=== PATIENT | male | born 1955 | race Caucasian/White ===

== ENCOUNTER 2018-05-07 09:31 | Emergency (ER) | payer OTHER ==
--- NOTE | 2018-05-07 09:57 | ER Document Report ---
ED Medical Screen (RME) - General Chief Complaint: Abdominal Pain Stated Complaint: ABDOMINAL PAIN Time Seen by Provider: 05/07/18 09:47 Mode of Arrival: Ambulatory Information source: Patient Notes: 63-year-old male presents with left lower quadrant abdominal pain that started 1 day prior to arrival with worsening of pain today. Patient denies any associated fever chills, nausea vomiting, diarrhea. I have greeted and performed a rapid initial assessment of this patient. A comprehensive ED assessment and evaluation of the patient, analysis of test results and completion of medical decision making process we will be contacted by additional ED providers. PHYSICAL EXAMINATION: Vital signs reviewed GENERAL: Well-appearing, well-nourished and in no acute distress. LUNGS: No respiratory distress Musculoskeletal: Normal range of motion NEUROLOGICAL: Normal speech, normal gait. PSYCH: Normal mood, normal affect. SKIN: Warm, Dry, normal turgor, no rashes or lesions noted. TRAVEL OUTSIDE OF THE [place] IN LAST 30 DAYS: No - HPI Onset: Yesterday Onset/Duration: Gradual, Persistent, Worse Quality of pain: Stabbing Severity: Mild Associated Symptoms: denies: Diarrhea, Nausea, Vomiting Exacerbated by: Deep breathing Relieved by: Denies Similar symptoms previously: Yes Recently seen / treated by doctor: No - Related Data Smoking: Non-smoker Frequency of alcohol use: None Drug Abuse: None Allergies/Adverse Reactions: No Known Allergies Allergy (Unverified 05/07/18 09:33) Physical Exam - Vital signs Vitals: Temp Pulse Resp BP Pulse Ox 97.4 F 88 16 128/77 H 96 05/07/18 09:37 05/07/18 09:37 05/07/18 09:37 05/07/18 09:37 05/07/18 09:37 Course - Vital Signs Vital signs: Temp Pulse Resp BP Pulse Ox 97.4 F 88 16 128/77 H 96 05/07/18 09:37 05/07/18 09:37 05/07/18 09:37 05/07/18 09:37 05/07/18 09:37
[2018-05-07 10:30] LABS: ABSOLUTE EOSINOPHILS # (AUTO) 0.2 10^3/uL (0.0-0.6); ABSOLUTE LYMPHOCYTES (AUTO) 1.8 10^3/uL (0.5-4.7); ABSOLUTE MONOCYTES (AUTO) 1.2 10^3/uL (0.1-1.4); ABSOLUTE NEUT (AUTO) 6.3 10^3/uL (1.7-8.2); BASOPHILS % (AUTO) 0.4 % (0-2); EOSINOPHILS % (AUTO) 1.7 % (0-6); HEMATOCRIT 40.3 % (37.9-51.0); LYMPHOCYTES % (AUTO) 19.1 % (13-45); MEAN CORPUSCULAR HEMOGLOBIN 31.5 pg (27.0-33.4); MEAN CORPUSCULAR HGB CONC 34.6 g/dL (32.0-36.0); MEAN CORPUSCULAR VOLUME 91 fl (80-97); MONOCYTES % (AUTO) 12.6 % (3-13); PLATELET COUNT 197 10^3/uL (150-450); RED BLOOD COUNT 4.43 10^6/uL (4.35-5.55); RED CELL DISTRIBUTION WIDTH 14.2 % (11.5-14.0); SEGMENTED NEUTROPHILS % (AUTO) 66.2 % (42-78); TOTAL CELLS COUNTED % (AUTO) 100 %; WHITE BLOOD COUNT 9.5 10^3/uL (4.0-10.5)
--- NOTE | 2018-05-07 10:44 | ER Document Report ---
ED General - General Chief Complaint: Abdominal Pain Stated Complaint: ABDOMINAL PAIN Time Seen by Provider: 05/07/18 09:47 Mode of Arrival: Ambulatory Information source: Patient Notes: This is a 64-year-old man with a history of peripheral neuropathy, COPD, GERD, dyslipidemia. The patient presents to the emergency room with lower abdominal pain for the past 24 hours. He was evaluated at urgent care yesterday and they recommended he come to the ER for evaluation. Patient denies any nausea, vomiting, blood in the stool. He has no family history of inflammatory bowel disease, stones. He denies any fever or chills. He denies diarrhea. TRAVEL OUTSIDE OF THE [place] IN LAST 30 DAYS: No - HPI Onset: Last week Onset/Duration: Gradual Quality of pain: Dull Severity: Moderate Pain Level: 2 Associated symptoms: denies: Chills, Fever, Shortness of breath Exacerbated by: Denies Relieved by: Denies Similar symptoms previously: No Recently seen / treated by doctor: Yes - Related Data Allergies/Adverse Reactions: No Known Allergies Allergy (Unverified 05/07/18 09:33) Past Medical History - General Information source: Patient - Social History Smoking Status: Former Smoker Cigarette use (# per day): No Chew tobacco use (# tins/day): No Frequency of alcohol use: None Drug Abuse: None Lives with: Family Family History: None Patient has suicidal ideation: No Patient has homicidal ideation: No - Past Medical History Cardiac Medical History: Reports: Hx Hypercholesterolemia Pulmonary Medical History: Reports: Hx COPD EENT Medical History: Reports: None Neurological Medical History: Reports: None Endocrine Medical History: Reports: None Renal/ Medical History: Reports: None. Denies: Hx Peritoneal Dialysis Malignancy Medical History: Reports None GI Medical History: Reports: Hx Gastroesophageal Reflux Disease Musculoskeletal Medical History: Reports Hx Arthritis Traumatic Medical History: Reports: None Past Surgical History: Reports: Hx Orthopedic Surgery - left jaw reconstruction Review of Systems - Review of Systems Constitutional: denies: Chills, Fever EENT: No symptoms reported Cardiovascular: No symptoms reported Respiratory: No symptoms reported Gastrointestinal: See HPI Genitourinary: No symptoms reported Male Genitourinary: No symptoms reported Musculoskeletal: No symptoms reported Skin: No symptoms reported Hematologic/Lymphatic: No symptoms reported Neurological/Psychological: No symptoms reported Physical Exam - Vital signs Vitals: Temp Pulse Resp BP Pulse Ox 97.4 F 88 16 128/77 H 96 05/07/18 09:37 05/07/18 09:37 05/07/18 09:37 05/07/18 09:37 05/07/18 09:37 Notes: Physical exam: GENERAL: Patient is alert and oriented x3, no acute distress. HEAD: Atraumatic, normocephalic. EYES: Pupils equal round and reactive to light, extraocular movements intact, sclera anicteric, conjunctiva are normal. ENT: TMs normal, nares patent, oropharynx clear without exudates. Moist mucous membranes. NECK: Normal range of motion, supple without obvious mass or JVD. LUNGS: Breath sounds clear to auscultation bilaterally and equal. No wheezes rales or rhonchi. HEART: Regular rate and rhythm without murmurs, rubs or gallops. ABDOMEN: Soft, normoactive bowel sounds. Mild tenderness to palpation in the lower quadrants. No guarding, no rebound. No masses appreciated. Testes: Nontender, no inguinal hernias appreciated. Rectal: No external lesions, brown stool, sent for study EXTREMITIES: Normal range of motion, no pitting or edema. No clubbing or cyanosis. NEUROLOGICAL: Cranial nerves II through XII grossly intact. Normal speech, moving all extremities. PSYCH: Normal mood, normal affect. SKIN: Warm, Dry, normal turgor, no rashes or lesions noted. Course - Re-evaluation Re-evalutation: 05/07/18 18:48 I discussed case with Dr. De La Cruz of oncology given the concern for malignancy. The plan will be that he follow-up with Dr. Reina to coordinate malignancy workup. He said that she would fit the patient in the next week. I also discussed the case with Dr. Bolanos of urology given the bladder mass and need for possible biopsy. He said he would fit the patient in the next week in the [place] office. I have given the patient to contact number. Had a long conversation with the patient to discuss the findings on CT and the concerns for cancer and the need for prompt workup. 05/07/18 18:49 - Vital Signs Vital signs: Temp Pulse Resp BP Pulse Ox 97.4 F 88 16 128/77 H 96 05/07/18 09:37 05/07/18 09:37 05/07/18 09:37 05/07/18 09:37 05/07/18 09:37 - Laboratory Result Diagrams: 05/07/18 10:15 05/07/18 10:15 Laboratory results interpreted by me: 05/07/18 05/07/18 05/07/18 10:04 10:15 10:15 RDW 14.2 H Carbon Dioxide 31 H ALT 16 L Urine Protein 100 H Urine Blood MODERATE H Ur Leukocyte Esterase SMALL H - Diagnostic Test Radiology reviewed: Image reviewed, Reports reviewed - CT of the abdomen shows a bladder mass with significant adenopathy concerning for metastatic disease or lymphoma Discharge - Discharge Clinical Impression: Bladder mass, UTI Condition: Stable Disposition: HOME, SELF-CARE Additional Instructions: As we discussed, the CT of the abdomen showed a mass in the urinary bladder. There was some adenopathy which is enlarged lymph nodes in the concern is cancer. Chest x-ray showed some small pulmonary nodules. It is very important that she get follow-up with both a urologist and an oncologist. I did speak to the oncologist affiliated with this hospital (Dr Reina) and she wants you to follow-up in the clinic. She wants you to call the office tomorrow (I left the number the clinic on the discharge paperwork). Tell the tour escort that the ER doctor had spoken to Dr Reina and Dr De La Cruz wanted you seen in the office in the next week. Tell them that you were in the ER and you were diagnosed with a bladder mass and there is concern for cancer. Next: I want you to call Dr Bolanos (Urologist) for follow-up appointment in the next week: Call the [place] office at [phone] and tell the tour escort that the ER doctor had spoken to Dr. Bolanos and Dr. Bolanos wanted you seen in the next week. Tell them that you were diagnosed with a bladder mass and the concern was cancer. This is important: Bring a copy of the labs, CT report and CT on disc with you when you see the urologist. The urologist office has no other way to get into our computer system. I want you to take the antibiotics as prescribed. Return to the emergency room for worsening pain or bleeding. Prescriptions: Cephalexin Monohydrate [Keflex 500 mg Capsule] 500 mg PO QID #28 capsule Referrals: SEBASTIAN REINA MD [ACTIVE STAFF] - Follow up tomorrow (Is the number for the oncologist: Tell the tour escort when you call tomorrow that you are in the ER and the ER doctor had spoken to Dr. Pace and she wanted to see him this week.)
[2018-05-07 10:47] LABS: APPEARANCE,URINE CLOUDY; BILIRUBIN,URINE NEGATIVE (NEGATIVE); COLOR,URINE YELLOW; GLUCOSE, URINE NEGATIVE (NEGATIVE); KETONES,URINE NEGATIVE (NEGATIVE); LEUKOCYTE ESTERASE,URINE SMALL (NEGATIVE); NITRITE,URINE NEGATIVE (NEGATIVE); PROTEIN,URINE 100 mg/dL (NEGATIVE); URINE SPECIFIC GRAVITY 1.019; UROBILINOGEN,URINE NEGATIVE mg/dL (<2.0)
[2018-05-07 10:50] LABS: ALANINE AMINOTRANSFERASE 16 U/L (21-72); ALBUMIN 4.4 g/dL (3.5-5.0); ALKALINE PHOSPHATASE 91 U/L (38-126); ANION GAP 8 (5-19); ASPARTATE AMINO TRANSFERASE 23 U/L (17-59); BILIRUBIN,DIRECT 0.1 mg/dL (0.0-0.4); BILIRUBIN,TOTAL 0.9 mg/dL (0.2-1.3); BLOOD UREA NITROGEN 16 mg/dL (7-20); CARBON DIOXIDE 31 mmol/L (22-30); CHLORIDE 100 mmol/L (98-107); GLUCOSE 105 mg/dL (75-110); LIPASE 27.1 U/L (23-300); POTASSIUM 4.2 mmol/L (3.6-5.0); SODIUM 139.4 mmol/L (137-145); TOTAL PROTEIN 7.7 g/dL (6.3-8.2)
[2018-05-07] MEDS ORDERED: NORMAL SALINE 1000 ML 1,000 ML IV ONE (11:43)
--- NOTE | 2018-05-07 14:03 | RADIOLOGY REPORT (SQ) ---
EXAM DESCRIPTION: CT ABD/PELVIS WITH IV ORAL COMPLETED DATE/TIME: 05/07/2018 1:43 pm REASON FOR STUDY: lower abdominal pain COMPARISON: None. TECHNIQUE: CT scan of the abdomen and pelvis performed with intravenous and oral contrast using lisa marcus scanning technique with dynamic intravenous contrast injection. Images reviewed with lung, soft t issue, and bone windows. Reconstructed coronal and sagittal MPR images reviewed. Delayed images for e valuation of the urinary system also acquired. All images stored on PACS. All CT scanners at this facility use dose modulation, iterative reconstruction, and/or weight based d osing when appropriate to reduce radiation dose to as low as reasonably achievable (ALARA). [facility]: Dose Right [facility]: CareDose [facility]: Dose Right [facility]: Teradose 4D [facility]: [employer] CONTRAST TYPE AND DOSE: contrast/concentration: Isovue 350.00 mg/ml; Total Contrast Delivered: 98.0 ml; Total Saline Delivered: 72.0 ml RENAL FUNCTION: GFR > 60. RADIATION DOSE: CT Rad equipment meets quality standard of care and radiation dose reduction techniq ues were employed. CTDIvol: 9.5 - 13.4 mGy. DLP: 1344 mGy-cm. . LIMITATIONS: None. FINDINGS: LOWER CHEST: Enlarged pericardial and epiphrenic nodes. LIVER: Normal size. No masses. No dilated ducts. SPLEEN: Normal size. No focal lesions. PANCREAS: No masses. No significant calcifications. No adjacent inflammation or peripancreatic fluid collections. Pancreatic duct not dilated. GALLBLADDER: No identified stones by CT criteria. No inflammatory changes to suggest cholecystitis. ADRENAL GLANDS: No significant masses or asymmetry. RIGHT KIDNEY AND URETER: No solid masses. No significant calcifications. No hydronephrosis or hyd roureter. LEFT KIDNEY AND URETER: No solid masses. No significant calcifications. No hydronephrosis or hydr oureter. AORTA AND VESSELS: No aneurysm. No dissection. Renal arteries, SMA, celiac without stenosis. RETROPERITONEUM: Adenopathy, the largest 1.9 x 2.9 cm at level of lower pole left kidney. BOWEL AND PERITONEAL CAVITY: Enlarged celiac axis and gastrohepatic nodes, the largest 1.6 x 2.6 cm. Diverticulosis sigmoid colon. No ascites or free air. APPENDIX: Not visualized. PELVIS: Adenopathy internal, external iliac and inguinal stations, the largest right inguinal node 2. 1 x 3.6 cm. There is a 3.4 cm mass in the urinary bladder. ABDOMINAL WALL: No masses. No hernias. BONES: Nothing acute. OTHER: No other significant finding. IMPRESSION: Urinary bladder mass. Extensive adenopathy suspicious for lymphoma or metastatic diseas e. TECHNICAL DOCUMENTATION: JOB ID: [id number] Quality ID # [id number]: Final reports with documentation of one or more dose reduction techniques (e.g., Au tomated exposure control, adjustment of the mA and/or kV according to patient size, use of iterative reconstruction technique) 2010 [employer]- All Rights Reserved Reading location - IP/workstation name: [email or web address]
--- NOTE | 2018-05-07 17:43 | RADIOLOGY REPORT (SQ) ---
EXAM DESCRIPTION: CHEST SINGLE VIEW COMPLETED DATE/TIME: 05/07/2018 5:32 pm REASON FOR STUDY: chest pain COMPARISON: None. EXAM PARAMETERS: NUMBER OF VIEWS: One view. TECHNIQUE: Single frontal radiographic view of the chest acquired. RADIATION DOSE: NA LIMITATIONS: None. FINDINGS: LUNGS AND PLEURA: 8 mm pulmonary nodule left mid lung. Smaller nodule left cardiophrenic angle. MEDIASTINUM AND HILAR STRUCTURES: No masses. Contour normal. HEART AND VASCULAR STRUCTURES: Heart normal in size. Normal vasculature. BONES: No acute findings. HARDWARE: None in the chest. OTHER: No other significant finding. IMPRESSION: Small pulmonary nodules. TECHNICAL DOCUMENTATION: JOB ID: [id number] [employer]- All Rights Reserved Reading location - IP/workstation name: [email or web address]
[2018-05-07 18:50] VITALS: BP 115/88
--- NOTE | 2018-05-08 10:24 | ER Document Report ---
Doctor's Note Notes: 05/08/18 10:23 Patient presented after electronic prescription failed to transmit to her pharmacy. I reviewed the patient's chart and wrote a prescription for Keflex as Dr. Martinez prescribed.
== END 2018-05-07 18:50 | disposition home or self-care (01) ==
LOC: ER 09:31
DX: N39.0 Urinary tract infection, site not specified (principal); N32.89 Other specified disorders of bladder; R59.9 Enlarged lymph nodes, unspecified; J44.9 Chronic obstructive pulmonary disease, unspecified; Z87.891 Personal history of nicotine dependence
CPT/HCPCS: 99285; 96360; 96361; 36415; 87086; 83615; 83690; 85025; 82272; 80053; 81001; 71045; 74177; J7030

== ENCOUNTER 2018-07-05 01:14 | Emergency (ER) | payer OTHER ==
[2018-07-05 01:22] VITALS: BP 155/69
== END 2018-07-05 01:40 | disposition left against medical advice (07) ==
LOC: ER 01:14
DX: Z53.21 Procedure and treatment not carried out due to patient leaving prior to being seen by health care provider (principal); R10.9 Unspecified abdominal pain

== ENCOUNTER 2020-05-07 19:43 | Inpatient (IN) | payer OTHER ==
[2020-05-07] MEDS ORDERED: NORMAL SALINE IV ONE (20:16)
[2020-05-07 20:29] LABS: ABSOLUTE LYMPHOCYTES (AUTO) 1.2 10^3/uL (0.5-4.7); ABSOLUTE MONOCYTES (AUTO) 0.9 10^3/uL (0.1-1.4); ABSOLUTE NEUT (AUTO) 12.8 10^3/uL (1.7-8.2); BASOPHILS % (AUTO) 0.1 % (0-2); HEMATOCRIT 40.1 % (37.9-51.0); HEMOGLOBIN 13.6 g/dL (13.5-17.0); LYMPHOCYTES % (AUTO) 7.8 % (13-45); MEAN CORPUSCULAR HEMOGLOBIN 30.3 pg (27.0-33.4); MEAN CORPUSCULAR HGB CONC 33.8 g/dL (32.0-36.0); MEAN CORPUSCULAR VOLUME 89 fl (80-97); MONOCYTES % (AUTO) 6.2 % (3-13); PLATELET COUNT 203 10^3/uL (150-450); RED BLOOD COUNT 4.48 10^6/uL (4.35-5.55); RED CELL DISTRIBUTION WIDTH 13.9 % (11.5-14.0); SEGMENTED NEUTROPHILS % (AUTO) 85.9 % (42-78); TOTAL CELLS COUNTED % (AUTO) 100 %; WHITE BLOOD COUNT 14.9 10^3/uL (4.0-10.5)
[2020-05-07 20:36] LABS: INTERNATIONAL RATION (INR) 1.05; PROTHROMBIN TIME 13.9 SEC (11.4-15.4)
[2020-05-07 20:40] LABS: VENOUS BLOOD BASE EXCESS -1.2 mmol/L; VENOUS BLOOD HCO3 22.2 mmol/L (20-32); VENOUS BLOOD PCO2 33.6 mmHg (35-63); VENOUS BLOOD PH 7.44 (7.30-7.42)
[2020-05-07 20:47] LABS: ALBUMIN 4.3 g/dL (3.5-5.0); ALKALINE PHOSPHATASE 204 U/L (38-126); ANION GAP 12 (5-19); ASPARTATE AMINO TRANSFERASE 39 U/L (17-59); BILIRUBIN,DIRECT 0.3 mg/dL (0.0-0.4); BILIRUBIN,TOTAL 0.8 mg/dL (0.2-1.3); BLOOD UREA NITROGEN 20 mg/dL (7-20); CALCIUM 9.6 mg/dL (8.4-10.2); CARBON DIOXIDE 28 mmol/L (22-30); CHLORIDE 98 mmol/L (98-107); GLUCOSE 160 mg/dL (75-110); TOTAL PROTEIN 7.3 g/dL (6.3-8.2)
--- NOTE | 2020-05-07 21:09 | RADIOLOGY REPORT (SQ) ---
EXAM DESCRIPTION: XR CHEST 1 VIEW 8:36 PM COMPLETED DATE/TME: 05/07/2020 20:44 CLINICAL HISTORY: 65 years, Male, sob COMPARISON: Chest x-ray today at 5:[address] abdomen pelvis from today. TECHNIQUE: Upright portable chest x-ray FINDINGS: Overpenetrated film. Borderline heart size. No suspicious mediastinal widening. Mild hyperinflation suspicious for COPD or emphysema. Several tiny lung nodules. That is not calcified. Review of CT abdomen pelvis from today demonstrates a mild interstitial NSIP pattern in the lung bases IMPRESSION: Suspected chronic lung disease with hyperinflation and interstitial changes. Scattered benign nodules. No acute findings.
--- NOTE | 2020-05-07 21:19 | ER Document Report ---
ED General - General Chief Complaint: Shortness Of Breath Stated Complaint: SHORTNESS OF BREATH Primary Care Provider: COLEEN DAUGHERTY MD [Primary Care Provider] - Follow up as needed Notes: 65-year-old male with non-Hodgkin's lymphoma, COPD, diabetes, and the current COVID-19 infection presents with worsening shortness of breath. Patient says that he was diagnosed almost 2 weeks ago and that he had initially was having fevers and shortness of breath and improved with Tylenol and then few days ago symptoms became worse and he became more short of breath. Patient has been having some loose nonbloody nonmelanotic stools and feels generally weak. Patient endorses cough and fever. Patient denies chest pain, syncope, neck pain, neck stiffness, headache, lower extremity edema, vomiting, abdominal pain TRAVEL OUTSIDE OF THE [place] IN LAST 30 DAYS: No - Related Data Allergies/Adverse Reactions: No Known Allergies Allergy (Verified 05/07/20 20:07) Past Medical History - General Information source: Patient, [facility] - Social History Smoking Status: Former Smoker Frequency of alcohol use: None Drug Abuse: None Family History: None - Past Medical History Cardiac Medical History: Reports: Hx Hypercholesterolemia Pulmonary Medical History: Reports: Hx COPD Renal/ Medical History: Denies: Hx Peritoneal Dialysis GI Medical History: Reports: Hx Gastroesophageal Reflux Disease Musculoskeletal Medical History: Reports Hx Arthritis Past Surgical History: Reports: Hx Orthopedic Surgery - left jaw reconstruction Review of Systems - Review of Systems Notes: REVIEW OF SYSTEMS: CONSTITUTIONAL : + fever, chills, or sweats. EENT: + recent cold symptoms, denies throat pain CARDIOVASCULAR: Denies chest pain, AUGIE RESPIRATORY: + cough, + shortness of breath. GASTROINTESTINAL: Denies abdominal pain, nausea/vomiting. GENITOURINARY: Denies difficulty urinating, painful urination. MUSCULOSKELETAL: Denies neck pain, back pain. SKIN: Denies rash or skin lesions. HEMATOLOGIC : Denies easy bruising or bleeding. LYMPHATIC: Denies swollen, enlarged glands. NEUROLOGICAL: Denies headache, denies change in gait. PSYCHIATRIC: Denies anxiety or stress or depression. Physical Exam - Vital signs Vitals: Resp Pulse Ox 25 H 94 05/07/20 19:56 05/07/20 19:56 - Notes Notes: PHYSICAL EXAMINATION: GENERAL: Mildly uncomfortable but nontoxic-appearing middle-aged man lying in stretcher awake alert and conversive with pleasant affect in no acute distress HEAD: Atraumatic, normocephalic. EYES: Pupils equal round and appropriate constriction, sclera anicteric, conjunctiva are normal. ENT: nares patent, moist mucous membranes. NECK: Normal range of motion, supple without lymphadenopathy LUNGS: Breath sounds clear to auscultation bilaterally and equal. No wheezes rales or rhonchi. Mildly tachypneic with nasal cannula in place, no accessory muscle use, speaking in full sentences HEART: Regular rate and rhythm without murmurs ABDOMEN: Soft, nontender, no guarding, no masses, no CVAT EXTREMITIES: Normal range of motion, no pitting or edema. No cyanosis. NEUROLOGICAL: Awake, alert, conversing appropriately, moves all extremities spontaneously. PSYCH: Normal mood, normal affect. SKIN: Warm, Dry, normal turgor, no rashes or lesions noted. Course - Re-evaluation Re-evalutation: 05/07/20 21:24 Patient with tachycardia and shortness of breath with known COVID-19 infection confirmed by outside test. Symptoms most likely secondary to direct effects of COVID-19, however given that patient has known malignancy and tachycardia will obtain CTA to rule out PE as COVID-19 further increases risk of PE. Tachycardia most likely secondary to dehydration as patient has had increased insensible losses and diarrhea related to COVID-19 infection. Patient's tachycardia resolved after fluid bolus and patient says he feels improved, lactate elevated but no other concerning sources of sepsis suspected and lactate is most likely secondary to dehydration, will repeat lactate after fluid bolus. If patient is able to maintain sats in the 90s on room air will likely discharge, otherwise will likely admit for close monitoring and supplemental oxygen. 05/07/20 23:19 Patient feels improved after fluids and no immediately emergent findings on his work-up, no pulmonary embolism, however patient's blood pressure has been low repeatedly with maps around 65 on multiple measurements after 30 mL/kg bolus. I trialed patient off of nasal cannula and he is satting 89 to 91% on room air, patient appropriate for admission given low blood pressure hypoxia and propensity to decompensate given multiple medical comorbidities. I presented patient to Dr. York who is coming to see the patient. The patient was evaluated during the global COVID-19 pandemic and that diagnosis was present upon their initial presentation. Their evaluation, treatment and testing was consistent with current guidelines for patients who present with complaints or symptoms that may be related to COVID-19. 05/08/20 00:[address] York and accepted to [facility]. - Vital Signs Vital signs: Temp Pulse Resp BP Pulse Ox 98.4 F 114 H 25 H 104/66 97 05/07/20 22:01 05/07/20 19:57 05/07/20 22:01 05/07/20 22:01 05/07/20 22:01 - Laboratory Results Result Diagrams: 05/07/20 20:05 05/07/20 20:05 Laboratory Results Interpreted: 05/07/20 05/07/20 05/07/20 20:05 20:05 20:05 WBC 14.9 H Lymph % (Auto) 7.8 L Absolute Neuts (auto) 12.8 H Seg Neutrophils % 85.9 H VBG pH 7.44 H VBG pCO2 33.6 L Glucose 160 H POC Glucose Lactic Acid ALT 76 H Alkaline Phosphatase 204 H 05/07/20 05/07/20 20:05 20:21 WBC Lymph % (Auto) Absolute Neuts (auto) Seg Neutrophils % VBG pH VBG pCO2 Glucose POC Glucose 152 H Lactic Acid 3.0 H ALT Alkaline Phosphatase Critical Laboratory Results Reviewed: No Critical Results - Radiology Results Critical Radiology Results Reviewed: No Critical Results - EKG Interpretation by Me Additional EKG results interpreted by me: 05/07/20 23:21 Sinus tachycardia, no significant ST elevations or depressions, equivocal T wave abnormalities nonspecific, QTc 453 Discharge - Discharge Clinical Impression: Pneumonia due to COVID-19 virus, Dehydration, Hypoxia Hypotension Qualifiers: Hypotension type: unspecified hypotension type Qualified Code(s): I95.9 - Hypotension, unspecified Disposition: ADMITTED INPATIENT Admitting Provider: Jay[facility] Admitted: [facility] Referrals: COLEEN DAUGHERTY MD [Primary Care Provider] - Follow up as needed
[2020-05-07] MEDS ORDERED: HYDROMORPHONE HCL INJ/PF 2 MG/ML AMPULE IV ONE (21:49)
--- NOTE | 2020-05-07 21:53 | EKG REPORT ---
SEVERITY:- BORDERLINE ECG - SINUS TACHYCARDIA BORDERLINE T ABNORMALITIES, INFERIOR LEADS : Confirmed by: Charisma Mullins MD 07-May-2020 21:52:26
--- NOTE | 2020-05-07 22:13 | RADIOLOGY REPORT (SQ) ---
EXAM DESCRIPTION: CT CHEST ANGIOGRAPHY WITHOUT THEN WITH IV CONTRAST COMPLETED DATE/TME: 05/07/2020 21:34 CLINICAL HISTORY: 65 years, Male, cancer covid tachy SOB, CREAT 1.17 COMPARISON: Chest x-ray from today. TECHNIQUE: 75 mL of Omnipaque 350. MIP reconstruction. Images stored on PACS. All CT scanners at this facility use dose modulation, iterative reconstruction, and/or weight based dosing when appropriate to reduce radiation dose to as low as reasonably achievable (ALARA). FINDINGS: No evidence for pulmonary hypertension or pulmonary embolus. Aorta is unremarkable. Tiny anterior mediastinal lymph nodes. Mildly larger subcarinal lymph node 12.5 mm in transverse diameter. Small bilateral hilar lymph nodes. Borderline heart size. No evidence for pericardial effusion. Severe emphysematous changes in the right upper lobe and moderate to the left upper lobe. Diffuse interstitial pattern predominantly peripherally. NSIP pattern. There is an element of fluid groundglass process. No significant pleural effusion. Fatty liver. IMPRESSION: 1. No PE. 2. Nonspecific borderline mediastinal lymph nodes more likely reactive. 3. Significant interstitial lung disease bilaterally.NSIP pattern. This can be a sequela of Covid Pneumonia. This could represent a more chronic process. 4. Incidental advanced emphysematous changes in both upper lobes especially on the right. 5. Fatty liver.
[2020-05-08] MEDS ORDERED: ACETAMINOPHEN 325 MG TABLET PO PRN (00:02)
[2020-05-08] MEDS ORDERED: IPRATROPIUM/ALBUTEROL 0.5-2.5 MG/3 ML AMPUL NEB PRN (00:02)
[2020-05-08] MEDS ORDERED: ONDANSETRON HCL INJ/PF 4 MG/2 ML SDV IV PRN (00:02)
[2020-05-08] MEDS ORDERED: RINGERS SOLUTION,LACTATED 1,000 ML IV PRN (00:02)
--- NOTE | 2020-05-08 00:43 | PDOC H&P ---
History of Present Illness Admission Date/PCP: COLEEN DAUGHERTY MD Patient complains of: Shortness of breath History of Present Illness: HERBIE UMANA is a 65 year old male with a history of non-Hodgkin's lymphoma, COPD, type 2 diabetes who presents to the ED reporting that he has been feeling really bad for the past 2 weeks. He has been having increased cough productive of yellowish sputum, shortness of breath, generalized weakness, nausea, watery nonbloody diarrhea. He states that the shortness of breath got progressively worse and yesterday he was able to see his primary care doctor and both he and his were tested for COVID-19 and his tested positive but his test result was pending. He had a rapid COVID-[address] to hospital by EMS and it was reported positive. He has associated pleuritic chest pain with coughing and taking deep breaths. He also states that he has decreased appetite and feels lightheaded when trying to get up. On arrival to the ED patient was hypotensive with his blood pressure in the 80s by 50s and he was saturating mid to upper 80s. He was placed on 2 L intranasal oxygen and improved to mid 90s. During my evaluation patient was on room air and was saturating lower 90 to 94%. Past Medical History Cardiac Medical History: Reports: Hyperlipidema Pulmonary Medical History: Reports: Chronic Obstructive Pulmonary Disease (COPD) GI Medical History: Reports: Gastroesophageal Reflux Disease Musculoskeltal Medical History: Reports: Arthritis Past Surgical History Past Surgical History: Reports: Orthopedic Surgery - left jaw reconstruction Social History Information Source: Patient Lives with: Family Smoking Status: Former Smoker Hx Recreational Drug Use: No Drugs: None - Advance Directive Resuscitation Status: Full Code Family History Family History: None Parental Family History Reviewed: Yes Children Family History Reviewed: Yes Sibling(s) Family History Reviewed.: Yes Medication/Allergy Home Medications: Cephalexin Monohydrate [Keflex 500 mg Capsule] 500 mg PO QID #28 capsule 05/07/18 Allergies/Adverse Reactions: No Known Allergies Allergy (Verified 05/07/20 20:07) Review of Systems Constitutional: PRESENT: as per HPI Eyes: ABSENT: visual disturbances Ears: ABSENT: hearing changes Nose, Mouth, and Throat: PRESENT: headache(s). ABSENT: mouth pain, sore throat Cardiovascular: ABSENT: edema, orthropnea, palpitations Respiratory: PRESENT: as per HPI Gastrointestinal: ABSENT: abdominal pain, constipation, diarrhea, hematemesis, hematochezia, nausea, vomiting Musculoskeletal: ABSENT: joint swelling Integumentary: ABSENT: rash, wounds Neurological: ABSENT: abnormal gait, abnormal speech, confusion, dizziness, focal weakness, syncope Psychiatric: ABSENT: anxiety, depression, homidical ideation, suicidal ideation Endocrine: ABSENT: cold intolerance, heat intolerance, polydipsia, polyuria Hematologic/Lymphatic: ABSENT: easy bleeding, easy bruising Physical Exam Vital Signs: Temp Pulse Resp BP Pulse Ox 98.4 F 114 H 25 H 104/66 97 05/07/20 22:01 05/07/20 19:57 05/07/20 22:01 05/07/20 22:01 05/07/20 22:01 Intake & Output 05/06/20 05/07/20 05/08/20 06:59 06:59 06:59 Intake Total 2430 Balance 2430 Weight 81 kg Additional comments: GENERAL APPEARANCE: Alert and oriented x3, in no acute distress HEENT: Normocephalic and atraumatic. No scleral icterus. Moist oral mucosa NECK: Supple. No lymphadenopathy or tenderness. No JVD CHEST: Symmetric. Nontender to palpation. LUNGS: Has good air entry, diffuse fine crackles are heard bilaterally. No wheezing HEART: Regular rate and rhythm with normal S1 and S2. No murmurs, gallops, or rubs. ABDOMEN: Flat, soft, active bowel sounds, no direct or rebound tenderness. No organomegaly detected. EXTREMITIES: No cyanosis, clubbing, or edema. MUSCULOSKELETAL: No deformity, atrophy or swelling noted PSYCHIATRIC: Recent and remote memory is intact. Appropriate mood and affect. SKIN: Warm, dry, and well perfused. No lesions or rashes are noted. NEUROLOGIC: No focal sensory or motor deficits are noted. Results Laboratory Results: 05/07/20 20:05 05/07/20 20:05 05/07/20 05/07/20 05/07/20 20:05 20:05 20:05 WBC 14.9 H RBC 4.48 Hgb 13.6 Hct 40.1 MCV 89 MCH 30.3 MCHC 33.8 RDW 13.9 Plt Count 203 Seg Neutrophils % 85.9 H VBG pH 7.44 H VBG pCO2 33.6 L VBG HCO3 22.2 VBG Base Excess -1.2 Sodium 138.1 Potassium 4.0 Chloride 98 Carbon Dioxide 28 Anion Gap 12 BUN 20 Creatinine 1.17 Est GFR ( Amer) > 60 Glucose 160 H Lactic Acid Calcium 9.6 Total Bilirubin 0.8 AST 39 Alkaline Phosphatase 204 H Total Protein 7.3 Albumin 4.3 05/07/20 05/07/20 20:05 23:11 WBC RBC Hgb Hct MCV MCH MCHC RDW Plt Count Seg Neutrophils % VBG pH VBG pCO2 VBG HCO3 VBG Base Excess Sodium Potassium Chloride Carbon Dioxide Anion Gap BUN Creatinine Est GFR ( Amer) Glucose Lactic Acid 3.0 H 1.7 Calcium Total Bilirubin AST Alkaline Phosphatase Total Protein Albumin 05/07/20 20:05 Troponin I < 0.012 Impressions: Chest X-Ray 05/07/20 19:58 IMPRESSION: Suspected chronic lung disease with hyperinflation and interstitial changes. Scattered benign nodules. No acute findings. Chest/Abdomen CTA 05/07/20 21:13 IMPRESSION: 1. No PE. 2. Nonspecific borderline mediastinal lymph nodes more likely reactive. 3. Significant interstitial lung disease bilaterally.NSIP pattern. This can be a sequela of Covid Pneumonia. This could represent a more chronic process. 4. Incidental advanced emphysematous changes in both upper lobes especially on the right. 5. Fatty liver. Assessment and Plan - Diagnosis (1) Acute respiratory failure with hypoxia Is this a current diagnosis for this admission?: Yes Plan: Patient presents with symptoms consistent with COVID-19 May be overlapping with symptoms of COPD and possible chronic interstitial lung disease Patient was saturating mid 80s on room air on presentation Venous blood gas showed a pH of 7.44 Placed him on intranasal oxygen to maintain saturation Started him on dexamethasone, breathing treatment with DuoNeb's Continued zinc, vitamin C, vitamin D Ceftriaxone and azithromycin IV started Follow-up with blood culture Closely monitor respiratory parameters (2) Sepsis Is this a current diagnosis for this admission?: Yes Plan: Hypotensive and tachycardic on presentation, has leukocytosis and lactic acidosis Likely focus of infection could be COVID-19 infection with superimposed bacterial pneumonia Patient reports that he has low blood pressure at baseline and leukocytosis could be due to steroid which was started 1 day ago Patient has been hydrated per sepsis protocol at the ED Started him on ceftriaxone and azithromycin Repeat lactic acid level after hydration Closely monitor for signs of volume overload Follow-up with blood culture (3) Pneumonia due to COVID-19 virus Is this a current diagnosis for this admission?: Yes Plan: Patient presents with worsening cough, shortness of breath, nausea and diarrhea Rapid COVID-19 test was positive Was hypoxic on presentation, COPD and possible interstitial lung disease may be contributing Started him on ceftriaxone and azithromycin Continue dexamethasone, zinc, vitamin D, vitamin C Ordered ferritin, LDH, D-dimer, CK and C-reactive protein levels Continue intranasal oxygen (4) Hypotension Qualifiers: Hypotension type: unspecified hypotension type Qualified Code(s): I95.9 - Hypotension, unspecified Is this a current diagnosis for this admission?: Yes Plan: Patient was hypotensive on presentation Blood pressure has responded well to initial IV fluids Multifactorial likely hypovolemic from poor oral intake and diarrhea versus sepsis Continue IV hydration and close monitoring of vital signs (5) Lactic acidosis Is this a current diagnosis for this admission?: Yes Plan: Serum lactic acid level was 3.0 which improved to 1.7 after hydration Continue IV antibiotic and hydration as stated above (6) Leukocytosis Is this a current diagnosis for this admission?: Yes Plan: Likely cause includes steroids, hemoconcentration and underlying infectious process Continue treating infection as stated above (7) COPD (chronic obstructive pulmonary disease) Is this a current diagnosis for this admission?: Yes Plan: Currently not in acute exacerbation Placed him on breathing treatment with DuoNeb's Continue intranasal oxygen and steroid as mentioned above (8) Non Hodgkin's lymphoma Is this a current diagnosis for this admission?: Yes Plan: Has been in remission since 2018 Patient reported few months back he had abdominal lymphadenopathy He is a scheduled for a repeat scan with his oncologist (9) Type 2 diabetes mellitus Is this a current diagnosis for this admission?: Yes Plan: We will place him on sliding scale with Accu-Chek and hypoglycemia protocol. - Time Time Spent with patient: 35 or more minutes Total Critical Time (Minutes): 45 Medications reviewed and adjusted accordingly: Yes Anticipated Discharge Disposition: Home, Self Care Anticipated Discharge Timeframe: within 72 hours - Inpatient Certification Based on my medical assessment, after consideration of the patient's comorbidities, presenting symptoms, or acuity I expect that the services needed warrant INPATIENT care.: Yes I certify that my determination is in accordance with my understanding of Medicare's requirements for reasonable and necessary INPATIENT services [42 CFR 412.3e].: Yes Medical Necessity: Failure to Improve With Outpatient Therapy, Significant Pat rbidiites Make Outpatient Treatment Too Risky, Need For IV Fluids, Need For Continuous Telemetry Monitoring, Need for Nebulizer Therapy and Monitoring of Response, Need for IV Antibiotics, Risk of Complication if Not Cared For in Hospital Post Hospital Care: D/C or Transfer Summary
[2020-05-08 01:14] LABS: C-REACTIVE PROTEIN 58.3 mg/L (<10.0)
[2020-05-08] MEDS ORDERED: DEXAMETHASONE SOD PHOSPHATE INJ 4 MG/1 ML VIAL ONE (02:10)
[2020-05-08] MEDS ORDERED: CEFTRIAXONE 1 GM/D5W RTU 1 GM/50 ML RTUPB IV ONE (02:11)
[2020-05-08] MEDS: CEFTRIAXONE 1 GM/D5W RTU 1 GM/50 ML RTUPB IV SCH ×2 (02:17→10:16)
[2020-05-08] MEDS: DEXAMETHASONE SOD PHOS INJ 10 MG/1 ML VIAL IV SCH ×2 (02:17→10:15)
[2020-05-08] MEDS ORDERED: AZITHROMYCIN INJ 500 MG VIAL IV ONE (02:31)
[2020-05-08] MEDS: AZITHROMYCIN 500 MG in DEXTROSE 5%-WATER 250 ML IV SCH ×2 (03:34→10:16)
[2020-05-08 08:45] LABS: MEAN CORPUSCULAR HEMOGLOBIN 30.9 pg (27.0-33.4); MEAN CORPUSCULAR HGB CONC 33.8 g/dL (32.0-36.0); MEAN CORPUSCULAR VOLUME 91 fl (80-97); PLATELET COUNT 173 10^3/uL (150-450); RED CELL DISTRIBUTION WIDTH 14.3 % (11.5-14.0); WHITE BLOOD COUNT 13.5 10^3/uL (4.0-10.5)
[2020-05-08 08:58] LABS: ALBUMIN 2.8 g/dL (3.5-5.0); ALKALINE PHOSPHATASE 138 U/L (38-126); ANION GAP 7 (5-19); ASPARTATE AMINO TRANSFERASE 28 U/L (17-59); BILIRUBIN,DIRECT 0.3 mg/dL (0.0-0.4); BILIRUBIN,TOTAL 0.6 mg/dL (0.2-1.3); BLOOD UREA NITROGEN 18 mg/dL (7-20); CALCIUM 7.7 mg/dL (8.4-10.2); CARBON DIOXIDE 24 mmol/L (22-30); CHLORIDE 107 mmol/L (98-107); GLUCOSE 245 mg/dL (75-110); HEMOGLOBIN 10.8 g/dL (13.5-17.0); TOTAL PROTEIN 5.2 g/dL (6.3-8.2)
[2020-05-08] MEDS ORDERED: DEXTROSE 50%-WATER SYRINGE 12.5 GM/25 ML DOSE IV PRN (10:00)
[2020-05-08] MEDS ORDERED: DEXTROSE 40% GEL 15 GM TUBE X 2 PO PRN (10:00)
[2020-05-08] MEDS ORDERED: DEXTROSE 50%-WATER SYRINGE 25 GM/50 ML DOSE IV PRN (10:00)
[2020-05-08] MEDS ORDERED: DEXTROSE 40% GEL 15 GM TUBE PO PRN (10:00)
[2020-05-08] MEDS ORDERED: GLUCAGON,HUMAN RECOMB 1 MG INJ IM PRN (10:00)
[2020-05-08] MEDS: ZINC SULFATE 220 MG CAPSULE PO SCH (10:14)
[2020-05-08] MEDS: FAMOTIDINE 20 MG TABLET PO SCH ×2 (10:14→22:12)
[2020-05-08] MEDS: CHOLECALCIFEROL (D3) 1,000 UNIT (25 MCG) TABLET PO SCH (10:15)
[2020-05-08] MEDS: ASCORBIC ACID 500 MG TABLET PO SCH ×2 (10:15→17:01)
[2020-05-08] MEDS: ENOXAPARIN SODIUM INJ 40 MG/0.4 ML DISP.SYRIN SUBCUT SCH (10:15)
[2020-05-08] MEDS: INSULIN LISPRO 100 UNIT/ML 3 ML VIAL SUBCUT SCH ×3 (12:54→22:12)
[2020-05-08] MEDS ORDERED: ALBUTEROL SULFATE HFA (90 MCG/PUFF) 8 GM MDI (1 MDI/ER DISP) IH PRN (15:25)
--- NOTE | 2020-05-08 15:30 | Progress Note ---
Provider Note Provider Note: Patient seen and examined on rounds. He is feeling okay, just very tired. He has had no BM so far today. Has excellent appetite and oral intake. He is saturating low 90s on 2 L O2 via NC. Otherwise, HD-stable. Labs reviewed. Exam unchanged from last night. Med Rec reviewed and medication changes made. Insulin dosing updated.
[2020-05-08] MEDS ORDERED: ALBUTEROL SULFATE HFA (90 MCG/PUFF) 8 GM MDI IH PRN (15:54)
[2020-05-08] MEDS: METOPROLOL SUCCINATE 50 MG TAB.SR.24H PO SCH (17:01)
[2020-05-08] MEDS ORDERED: INSULIN GLARGINE,HUM.REC.ANLOG 1,000 UNIT/10 ML VIAL SUBCUT SCH (22:00)
[2020-05-08] MEDS: ATORVASTATIN CALCIUM 40 MG TABLET PO SCH (22:12)
[2020-05-09 05:33] LABS: HEMATOCRIT 32.3 % (37.9-51.0); HEMOGLOBIN 11.1 g/dL (13.5-17.0); MEAN CORPUSCULAR HEMOGLOBIN 30.8 pg (27.0-33.4); MEAN CORPUSCULAR HGB CONC 34.5 g/dL (32.0-36.0); MEAN CORPUSCULAR VOLUME 89 fl (80-97); PLATELET COUNT 180 10^3/uL (150-450); RED BLOOD COUNT 3.62 10^6/uL (4.35-5.55); RED CELL DISTRIBUTION WIDTH 13.9 % (11.5-14.0); WHITE BLOOD COUNT 15.3 10^3/uL (4.0-10.5)
[2020-05-09 05:52] LABS: ANION GAP 9 (5-19); BLOOD UREA NITROGEN 19 mg/dL (7-20); CALCIUM 8.9 mg/dL (8.4-10.2); CARBON DIOXIDE 26 mmol/L (22-30); CHLORIDE 102 mmol/L (98-107); GLUCOSE 314 mg/dL (75-110); POTASSIUM 4.3 mmol/L (3.6-5.0)
--- NOTE | 2020-05-09 08:45 | PDOC PROGRESS REPORT ---
Subjective Date:: 05/09/20 Subjective:: 65 year old male with a history of non-Hodgkin's lymphoma, COPD, type 2 diabetes who presents to the ED reporting that he has been feeling really bad for the past 2 weeks. He has been having increased cough productive of yellowish sputum, shortness of breath, generalized weakness, nausea, watery nonbloody diarrhea. He states that the shortness of breath got progressively worse and yesterday he was able to see his primary care doctor and both he and his were tested for COVID-19 and his tested positive but his test result was pending. He had a rapid COVID-[address] his way to hospital by EMS and it was reported positive. He has associated pleuritic chest pain with coughing and taking deep breaths. He also states that he has decreased appetite and feels lightheaded when trying to get up. On arrival to the ED patient was hypotensive with his blood pressure in the 80s by 50s and he was saturating mid to upper 80s. He was placed on 2 L intranasal oxygen and improved to mid 90s. During my evaluation patient was on room air and was saturating lower 90 to 94%. [id number]-old male with history of non-Hodgkin's lymphoma, COPD, type 2 diabetes mellitus admitted with shortness of breath and a productive sputum, he was COVID-19 positive. On examination this morning he is on 5 L of oxygen pulse ox is around 91%. Patient is a chronic smoker with history of COPD. He is complaining of depression requesting medications and also requesting something to sleep at night. Reason For Visit: ACUTE HYPOXIC RESPIRATORY FAILURE, SEPSIS, Physical Exam Vital Signs: Temp Pulse Resp BP Pulse Ox 97.9 F 60 17 125/73 91 L 05/09/20 04:17 05/09/20 07:00 05/09/20 04:17 05/09/20 04:17 05/09/20 04:17 Intake & Output 05/08/20 05/09/20 05/10/20 06:59 06:59 06:59 Intake Total 2990 1401 Output Total 575 2400 Balance 2415 -999 Weight 84.5 kg 84.5 kg General appearance: PRESENT: no acute distress, cooperative Head exam: PRESENT: atraumatic Eye exam: PRESENT: PERRLA Ear exam: PRESENT: normal external ear exam Mouth exam: PRESENT: moist, tongue midline Teeth exam: PRESENT: poor dentation Neck exam: ABSENT: carotid bruit, JVD, lymphadenopathy, thyromegaly Respiratory exam: PRESENT: decreased breath sounds Cardiovascular exam: PRESENT: RRR. ABSENT: diastolic murmur, rubs, systolic murmur GI/Abdominal exam: PRESENT: normal bowel sounds, soft. ABSENT: distended, guarding, mass, organolmegaly, rebound, tenderness Rectal exam: PRESENT: deferred Extremities exam: PRESENT: full ROM. ABSENT: calf tenderness, clubbing, pedal edema Neurological exam: PRESENT: alert, awake, oriented to person, oriented to place, oriented to time, oriented to situation, CN II-XII grossly intact. ABSENT: motor sensory deficit Skin exam: PRESENT: dry, intact, warm. ABSENT: cyanosis, rash Results Laboratory Results: 05/09/20 04:23 05/09/20 04:23 05/08/20 05/08/20 05/09/20 00:40 00:40 04:23 WBC 13.5 H 15.3 H RBC 3.50 L 3.62 L Hgb 10.8 L D 11.1 L Hct 32.0 L 32.3 L MCV 91 89 MCH 30.9 30.8 MCHC 33.8 34.5 RDW 14.3 H 13.9 Plt Count 173 180 Sodium 138.4 Potassium 4.0 Chloride 107 Carbon Dioxide 24 Anion Gap 7 BUN 18 Creatinine 1.08 Est GFR ( Amer) > 60 Glucose 245 H Calcium 7.7 L Magnesium 1.5 L Total Bilirubin 0.6 AST 28 Alkaline Phosphatase 138 H Total Protein 5.2 L Albumin 2.8 L 05/09/20 04:23 WBC RBC Hgb Hct MCV MCH MCHC RDW Plt Count Sodium 136.9 L Potassium 4.3 Chloride 102 Carbon Dioxide 26 Anion Gap 9 BUN 19 Creatinine 0.80 Est GFR ( Amer) > 60 Glucose 314 H Calcium 8.9 Magnesium 1.8 Total Bilirubin AST Alkaline Phosphatase Total Protein Albumin 05/07/20 05/08/20 20:05 00:36 Creatine Kinase 103 Troponin I < 0.012 Impressions: Chest X-Ray 05/07/20 19:58 IMPRESSION: Suspected chronic lung disease with hyperinflation and interstitial changes. Scattered benign nodules. No acute findings. Chest/Abdomen CTA 05/07/20 21:13 IMPRESSION: 1. No PE. 2. Nonspecific borderline mediastinal lymph nodes more likely reactive. 3. Significant interstitial lung disease bilaterally.NSIP pattern. This can be a sequela of Covid Pneumonia. This could represent a more chronic process. 4. Incidental advanced emphysematous changes in both upper lobes especially on the right. 5. Fatty liver. Assessment and Plan - Diagnosis (1) Acute respiratory failure with hypoxia Is this a current diagnosis for this admission?: Yes Plan: Patient presents with symptoms consistent with COVID-19 May be overlapping with symptoms of COPD and possible chronic interstitial lung disease Patient was saturating mid 80s on room air on presentation Venous blood gas showed a pH of 7.44 Placed him on intranasal oxygen to maintain saturation Started him on dexamethasone, breathing treatment with DuoNeb's Continued zinc, vitamin C, vitamin D Ceftriaxone and azithromycin IV started Follow-up with blood culture Closely monitor respiratory parameters 05/09/2020-patient has history of COVID-19 positivity admitted with acute hypoxic respiratory failure. Pulse ox is 91% on 5 L this morning. Patient is a chronic smoker has history of COPD and Hodgkin's lymphoma. He is on dexamethasone 6 mg IV daily, zinc, vitamin C, vitamin D. Is also receiving DuoNeb nebulizations. Presently on IV Rocephin, Zithromax. Blood cultures are pending at this time. (2) Sepsis Is this a current diagnosis for this admission?: Yes Plan: Hypotensive and tachycardic on presentation, has leukocytosis and lactic acidosis Likely focus of infection could be COVID-19 infection with superimposed bacterial pneumonia Patient reports that he has low blood pressure at baseline and leukocytosis could be due to steroid which was started 1 day ago Patient has been hydrated per sepsis protocol at the ED Started him on ceftriaxone and azithromycin Repeat lactic acid level after hydration Closely monitor for signs of volume overload Follow-up with blood culture 05/09/2020-patient came in with hypotension which was resolved. Latest blood pressure is 125/73, afebrile. Blood cultures are pending. WBC is 15,000 may be secondary to IV steroid use. Plan is to continue IV ceftriaxone, azithromycin at this time. Repeat lactic acid level is 1.7. (3) Pneumonia due to COVID-19 virus Is this a current diagnosis for this admission?: Yes Plan: Patient presents with worsening cough, shortness of breath, nausea and diarrhea Rapid COVID-19 test was positive Was hypoxic on presentation, COPD and possible interstitial lung disease may be contributing Started him on ceftriaxone and azithromycin Continue dexamethasone, zinc, vitamin D, vitamin C Ordered ferritin, LDH, D-dimer, CK and C-reactive protein levels Continue intranasal oxygen 05/09/2020-patient has COVID-19 pneumonia admitted with acute hypoxic respiratory failure. On oxygen supplementations. To continue ceftriaxone, Z ithromax, dexamethasone, zinc, vitamin D, vitamin C. Ferritin is 794. C- reactive protein is 58. D-dimer is normal 0.32. CK is normal 103. (4) Hypotension Qualifiers: Hypotension type: unspecified hypotension type Qualified Code(s): I95.9 - Hypotension, unspecified Is this a current diagnosis for this admission?: Yes Plan: Patient was hypotensive on presentation Blood pressure has responded well to initial IV fluids Multifactorial likely hypovolemic from poor oral intake and diarrhea versus sepsis Continue IV hydration and close monitoring of vital signs 05/09/2020-blood pressure this morning is 125/73. Hypotension resolved. Not on IV fluids at this time. (5) Leukocytosis Is this a current diagnosis for this admission?: Yes Plan: Likely cause includes steroids, hemoconcentration and underlying infectious process Continue treating infection as stated above 05/09/20-WBC count is 15,300. It may be secondary to steroid therapy. (6) Non Hodgkin's lymphoma Is this a current diagnosis for this admission?: Yes Plan: Has been in remission since 2018 Patient reported few months back he had abdominal lymphadenopathy He is a scheduled for a repeat scan with his oncologist (7) COPD (chronic obstructive pulmonary disease) Is this a current diagnosis for this admission?: Yes Plan: Currently not in acute exacerbation Placed him on breathing treatment with DuoNeb's Continue intranasal oxygen and steroid as mentioned above (8) Type 2 diabetes mellitus Is this a current diagnosis for this admission?: Yes Plan: We will place him on sliding scale with Accu-Chek and hypoglycemia protocol. 05/09/2020-latest blood sugar is 314. To hold metformin at this time. To increase Lantus to 20 units twice a day and to continue/sliding scale. Diet exercise weight loss lifestyle modifications discussed with the patient. Hemoglobin A1c is requested. - Time Anticipated Discharge Disposition: Home, Self Care Anticipated Discharge Timeframe: within 72 hours
[2020-05-09] MEDS: INSULIN LISPRO 100 UNIT/ML 3 ML VIAL SUBCUT SCH ×4 (09:02→22:15)
[2020-05-09] MEDS: PREGABALIN 75 MG CAPSULE PO SCH (09:03)
[2020-05-09] MEDS ORDERED: (PENDING PHARMACY ID) (Budesonide/Formoterol Fumarate 60 PUFF/6 GM Inhaler) IH SCH (10:00)
[2020-05-09] MEDS ORDERED: NIACIN 500 MG PO SCH (10:00)
[2020-05-09] MEDS ORDERED: INSULIN GLARGINE,HUM.REC.ANLOG 1,000 UNIT/10 ML VIAL SUBCUT SCH (10:00)
[2020-05-09] MEDS: OXYMETAZOLINE HCL 0.05% NASAL SPRAY 15 ML BOTTLE NASL SCH ×2 (10:33→17:16)
[2020-05-09] MEDS: ASCORBIC ACID 500 MG TABLET PO SCH ×2 (10:34→17:16)
[2020-05-09] MEDS: FAMOTIDINE 20 MG TABLET PO SCH ×2 (10:34→22:16)
[2020-05-09] MEDS: ZINC SULFATE 220 MG CAPSULE PO SCH (10:34)
[2020-05-09] MEDS: CITALOPRAM HYDROBROMIDE 20 MG TABLET PO SCH (10:34)
[2020-05-09] MEDS: CHOLECALCIFEROL (D3) 1,000 UNIT (25 MCG) TABLET PO SCH (10:34)
[2020-05-09] MEDS: CEFTRIAXONE 1 GM/D5W RTU 1 GM/50 ML RTUPB IV SCH (10:35)
[2020-05-09] MEDS: DEXAMETHASONE SOD PHOS INJ 10 MG/1 ML VIAL IV SCH (10:35)
[2020-05-09] MEDS: AZITHROMYCIN 500 MG in DEXTROSE 5%-WATER 250 ML IV SCH (10:35)
[2020-05-09] MEDS: ENOXAPARIN SODIUM INJ 40 MG/0.4 ML DISP.SYRIN SUBCUT SCH (10:43)
[2020-05-09] MEDS: FLUTICASONE/UMECLIDIN/VILANTER 100-62.5-25 MCG/DOSE IH SCH (10:43)
[2020-05-09] MEDS: METOPROLOL SUCCINATE 50 MG TAB.SR.24H PO SCH (17:15)
[2020-05-09] MEDS ORDERED: ROSUVASTATIN CALCIUM 10 MG PO SCH (18:00)
[2020-05-09] MEDS ORDERED: MELATONIN 3 MG TABLET ONE (20:47)
[2020-05-09] MEDS: INSULIN GLARGINE,HUM.REC.ANLOG 1,000 UNIT/10 ML VIAL SUBCUT SCH (22:14)
[2020-05-09] MEDS: ATORVASTATIN CALCIUM 40 MG TABLET PO SCH (22:14)
[2020-05-09] MEDS: MELATONIN 3 MG TABLET PO SCH (22:14)
[2020-05-10 06:13] LABS: ALBUMIN 3.4 g/dL (3.5-5.0); ALKALINE PHOSPHATASE 142 U/L (38-126); ANION GAP 8 (5-19); ASPARTATE AMINO TRANSFERASE 32 U/L (17-59); BILIRUBIN,DIRECT 0.4 mg/dL (0.0-0.4); BILIRUBIN,TOTAL 0.6 mg/dL (0.2-1.3); BLOOD UREA NITROGEN 20 mg/dL (7-20); CALCIUM 8.9 mg/dL (8.4-10.2); CARBON DIOXIDE 29 mmol/L (22-30); CHLORIDE 103 mmol/L (98-107); GLUCOSE 227 mg/dL (75-110); POTASSIUM 4.3 mmol/L (3.6-5.0); TOTAL PROTEIN 5.9 g/dL (6.3-8.2)
[2020-05-10 07:34] LABS: ABSOLUTE LYMPHOCYTES (AUTO) 1.2 10^3/uL (0.5-4.7); ABSOLUTE MONOCYTES (AUTO) 0.8 10^3/uL (0.1-1.4); ABSOLUTE NEUT (AUTO) 10.2 10^3/uL (1.7-8.2); BASOPHILS % (AUTO) 0.1 % (0-2); HEMATOCRIT 33.1 % (37.9-51.0); HEMOGLOBIN 11.4 g/dL (13.5-17.0); LYMPHOCYTES % (AUTO) 10.2 % (13-45); MEAN CORPUSCULAR HEMOGLOBIN 30.4 pg (27.0-33.4); MEAN CORPUSCULAR HGB CONC 34.4 g/dL (32.0-36.0); MEAN CORPUSCULAR VOLUME 89 fl (80-97); MONOCYTES % (AUTO) 6.6 % (3-13); PLATELET COUNT 203 10^3/uL (150-450); RED BLOOD COUNT 3.74 10^6/uL (4.35-5.55); RED CELL DISTRIBUTION WIDTH 13.7 % (11.5-14.0); SEGMENTED NEUTROPHILS % (AUTO) 83.1 % (42-78); TOTAL CELLS COUNTED % (AUTO) 100 %; WHITE BLOOD COUNT 12.2 10^3/uL (4.0-10.5)
[2020-05-10] MEDS ORDERED: (PENDING PHARMACY ID) (Omeprazole [Omeprazole] 20 MG Capsule.Dr) PO SCH (08:00)
[2020-05-10] MEDS ORDERED: PANTOPRAZOLE SODIUM 20 MG TABLET.DR PO SCH (08:00)
[2020-05-10] MEDS: INSULIN LISPRO 100 UNIT/ML 3 ML VIAL SUBCUT SCH ×4 (08:39→22:11)
[2020-05-10] MEDS: PREGABALIN 75 MG CAPSULE PO SCH (08:40)
--- NOTE | 2020-05-10 09:22 | PDOC PROGRESS REPORT ---
Subjective Date:: 05/10/20 Subjective:: 65 year old male with a history of non-Hodgkin's lymphoma, COPD, type 2 diabetes who presents to the ED reporting that he has been feeling really bad for the past 2 weeks. He has been having increased cough productive of yellowish sputum, shortness of breath, generalized weakness, nausea, watery nonbloody diarrhea. He states that the shortness of breath got progressively worse and yesterday he was able to see his primary care doctor and both he and his were tested for COVID-19 and his tested positive but his test result was pending. He had a rapid COVID-[address] to hospital by EMS and it was reported positive. He has associated pleuritic chest pain with coughing and taking deep breaths. He also states that he has decreased appetite and feels lightheaded when trying to get up. On arrival to the ED patient was hypotensive with his blood pressure in the 80s by 50s and he was saturating mid to upper 80s. He was placed on 2 L intranasal oxygen and improved to mid 90s. During my evaluation patient was on room air and was saturating lower 90 to 94%. 05/09/[id number]-wald-old male with history of non-Hodgkin's lymphoma, COPD, type 2 diabetes mellitus admitted with shortness of breath and a productive sputum, he was COVID-19 positive. On examination this morning he is on 5 L of oxygen pulse ox is around 91%. Patient is a chronic smoker with history of COPD. He is complaining of depression requesting medications and also requesting something to sleep at night. 05/10/2041-78-xznw-old male admitted with COVID-19 pneumonia pulse ox is 96% on 2 L. Comfortably in the bed communicating. Less anxious less nervous today. Agreed to stay for 3 more days to complete the therapy. Reason For Visit: ACUTE HYPOXIC RESPIRATORY FAILURE, SEPSIS, Physical Exam Vital Signs: Temp Pulse Resp BP Pulse Ox 97.4 F 65 20 116/73 92 05/10/20 07:45 05/10/20 07:45 05/10/20 07:45 05/10/20 07:45 05/10/20 07:45 Intake & Output 05/09/20 05/10/20 05/11/20 06:59 06:59 06:59 Intake Total 1401 1560 Output Total 2400 1650 Balance -999 -90 Weight 84.5 kg 84.5 kg General appearance: PRESENT: no acute distress, cooperative Eye exam: PRESENT: PERRLA Teeth exam: PRESENT: poor dentation Neck exam: ABSENT: carotid bruit, JVD, lymphadenopathy, thyromegaly Respiratory exam: PRESENT: decreased breath sounds Cardiovascular exam: PRESENT: RRR. ABSENT: diastolic murmur, rubs, systolic murmur GI/Abdominal exam: PRESENT: normal bowel sounds, soft. ABSENT: distended, guarding, mass, organolmegaly, rebound, tenderness Rectal exam: PRESENT: deferred Extremities exam: PRESENT: full ROM. ABSENT: calf tenderness, clubbing, pedal edema Neurological exam: PRESENT: alert, awake, oriented to person, oriented to place, oriented to time, oriented to situation, CN II-XII grossly intact. ABSENT: motor sensory deficit Psychiatric exam: PRESENT: appropriate affect, normal mood. ABSENT: homicidal ideation, suicidal ideation Results Laboratory Results: 05/10/20 07:18 05/10/20 05:30 05/10/20 05/10/20 05/10/20 05:30 05:30 07:18 WBC Cancelled 12.2 H RBC Cancelled 3.74 L Hgb Cancelled 11.4 L Hct Cancelled 33.1 L MCV Cancelled 89 MCH Cancelled 30.4 MCHC Cancelled 34.4 RDW Cancelled 13.7 Plt Count Cancelled 203 Seg Neutrophils % Cancelled 83.1 H Sodium 139.5 Potassium 4.3 Chloride 103 Carbon Dioxide 29 Anion Gap 8 BUN 20 Creatinine 0.79 Est GFR ( Amer) > 60 Glucose 227 H Calcium 8.9 Magnesium 2.1 Total Bilirubin 0.6 AST 32 Alkaline Phosphatase 142 H Total Protein 5.9 L Albumin 3.4 L 05/07/20 05/08/20 20:05 00:36 Creatine Kinase 103 Troponin I < 0.012 Impressions: Chest X-Ray 05/07/20 19:58 IMPRESSION: Suspected chronic lung disease with hyperinflation and interstitial changes. Scattered benign nodules. No acute findings. Chest/Abdomen CTA 05/07/20 21:13 IMPRESSION: 1. No PE. 2. Nonspecific borderline mediastinal lymph nodes more likely reactive. 3. Significant interstitial lung disease bilaterally.NSIP pattern. This can be a sequela of Covid Pneumonia. This could represent a more chronic process. 4. Incidental advanced emphysematous changes in both upper lobes especially on the right. 5. Fatty liver. Assessment and Plan - Diagnosis (1) Acute respiratory failure with hypoxia Is this a current diagnosis for this admission?: Yes Plan: Patient presents with symptoms consistent with COVID-19 May be overlapping with symptoms of COPD and possible chronic interstitial lung disease Patient was saturating mid 80s on room air on presentation Venous blood gas showed a pH of 7.44 Placed him on intranasal oxygen to maintain saturation Started him on dexamethasone, breathing treatment with DuoNeb's Continued zinc, vitamin C, vitamin D Ceftriaxone and azithromycin IV started Follow-up with blood culture Closely monitor respiratory parameters 05/09/2020-patient has history of COVID-19 positivity admitted with acute hypoxic respiratory failure. Pulse ox is 91% on 5 L this morning. Patient is a chronic smoker has history of COPD and Hodgkin's lymphoma. He is on dexamethasone 6 mg IV daily, zinc, vitamin C, vitamin D. Is also receiving DuoNeb nebulizations. Presently on IV Rocephin, Zithromax. Blood cultures are pending at this time. 05/10/2091-32-bbwd-old male admitted with acute hypoxic respiratory failure with h ypoxia secondary to COVID-19 pneumonia. Oxygen requirements are improving. Pulse ox is 96% 2 L. Comfortably in the bed communicating well. CT of the chest is negative for PE. To continue IV Rocephin, Zithromax, dexamethasone, zinc. (2) Sepsis Is this a current diagnosis for this admission?: Yes Plan: Hypotensive and tachycardic on presentation, has leukocytosis and lactic acidosis Likely focus of infection could be COVID-19 infection with superimposed bacterial pneumonia Patient reports that he has low blood pressure at baseline and leukocytosis could be due to steroid which was started 1 day ago Patient has been hydrated per sepsis protocol at the ED Started him on ceftriaxone and azithromycin Repeat lactic acid level after hydration Closely monitor for signs of volume overload Follow-up with blood culture 05/09/2020-patient came in with hypotension which was resolved. Latest blood pressure is 125/73, afebrile. Blood cultures are pending. WBC is 15,000 may be secondary to IV steroid use. Plan is to continue IV ceftriaxone, azithromycin at this time. Repeat lactic acid level is 1.7. 05/10/2020-patient admitted with sepsis and hypotension. Hypotension is resolved not on IV fluids at this time. Blood pressure is 127/81. (3) Pneumonia due to COVID-19 virus Is this a current diagnosis for this admission?: Yes Plan: Patient presents with worsening cough, shortness of breath, nausea and diarrhea Rapid COVID-19 test was positive Was hypoxic on presentation, COPD and possible interstitial lung disease may be contributing Started him on ceftriaxone and azithromycin Continue dexamethasone, zinc, vitamin D, vitamin C Ordered ferritin, LDH, D-dimer, CK and C-reactive protein levels Continue intranasal oxygen 05/09/2020-patient has COVID-19 pneumonia admitted with acute hypoxic respiratory failure. On oxygen supplementations. To continue ceftriaxone, Zithromax, dexamethasone, zinc, vitamin D, vitamin C. Ferritin is 794. C- reactive protein is 58. D-dimer is normal 0.32. CK is normal 103. 05/10/2020-CT scan suggestive of bilateral pneumonia most likely secondary to COVID-19 pneumonia. Receiving IV Rocephin, Zithromax, dexamethasone. (4) Hypotension Qualifiers: Hypotension type: unspecified hypotension type Qualified Code(s): I95.9 - Hypotension, unspecified Is this a current diagnosis for this admission?: Yes Plan: Patient was hypotensive on presentation Blood pressure has responded well to initial IV fluids Multifactorial likely hypovolemic from poor oral intake and diarrhea versus sepsis Continue IV hydration and close monitoring of vital signs 05/09/2020-blood pressure this morning is 125/73. Hypotension resolved. Not on IV fluids at this time. 05/10/2020-blood pressure today is 127/81. Stable. (5) Leukocytosis Is this a current diagnosis for this admission?: Yes Plan: Likely cause includes steroids, hemoconcentration and underlying infectious process Continue treating infection as stated above 05/09/20-WBC count is 15,300. It may be secondary to steroid therapy. 05/10/20-wbc 12,200.. WBC count is improving. Afebrile. (6) Non Hodgkin's lymphoma Is this a current diagnosis for this admission?: Yes Plan: Has been in remission since 2018 Patient reported few months back he had abdominal lymphadenopathy He is a scheduled for a repeat scan with his oncologist (7) COPD (chronic obstructive pulmonary disease) Is this a current diagnosis for this admission?: Yes Plan: Currently not in acute exacerbation Placed him on breathing treatment with DuoNeb's Continue intranasal oxygen and steroid as mentioned above (8) Type 2 diabetes mellitus Is this a current diagnosis for this admission?: Yes Plan: We will place him on sliding scale with Accu-Chek and hypoglycemia protocol. 05/09/2020-latest blood sugar is 314. To hold metformin at this time. To increase Lantus to 20 units twice a day and to continue/sliding scale. Diet exercise weight loss lifestyle modifications discussed with the patient. Hemoglobin A1c is requested. 05/10/2020-hemoglobin A1c is 8.1. To continue Lantus 20 units twice daily, insulin sliding scale. Latest blood sugar is 221. Again diet exercise weight loss lifestyle modifications discussed with the patient. - Time Anticipated Discharge Disposition: Home, Self Care Anticipated Discharge Timeframe: within 72 hours
[2020-05-10] MEDS: FAMOTIDINE 20 MG TABLET PO SCH ×2 (10:13→21:31)
[2020-05-10] MEDS: CHOLECALCIFEROL (D3) 1,000 UNIT (25 MCG) TABLET PO SCH (10:14)
[2020-05-10] MEDS: ASCORBIC ACID 500 MG TABLET PO SCH ×2 (10:14→17:23)
[2020-05-10] MEDS: ZINC SULFATE 220 MG CAPSULE PO SCH (10:15)
[2020-05-10] MEDS: DEXAMETHASONE SOD PHOS INJ 10 MG/1 ML VIAL IV SCH (10:15)
[2020-05-10] MEDS: AZITHROMYCIN 500 MG in DEXTROSE 5%-WATER 250 ML IV SCH (10:15)
[2020-05-10] MEDS: ENOXAPARIN SODIUM INJ 40 MG/0.4 ML DISP.SYRIN SUBCUT SCH (10:15)
[2020-05-10] MEDS: CEFTRIAXONE 1 GM/D5W RTU 1 GM/50 ML RTUPB IV SCH (10:16)
[2020-05-10] MEDS: INSULIN GLARGINE,HUM.REC.ANLOG 1,000 UNIT/10 ML VIAL SUBCUT SCH ×2 (10:17→22:12)
[2020-05-10] MEDS: CITALOPRAM HYDROBROMIDE 20 MG TABLET PO SCH (10:22)
[2020-05-10] MEDS: OXYMETAZOLINE HCL 0.05% NASAL SPRAY 15 ML BOTTLE NASL SCH ×2 (10:26→17:26)
[2020-05-10] MEDS: FLUTICASONE/UMECLIDIN/VILANTER 100-62.5-25 MCG/DOSE IH SCH (10:26)
[2020-05-10] MEDS: METOPROLOL SUCCINATE 50 MG TAB.SR.24H PO SCH (17:22)
[2020-05-10] MEDS ORDERED: INSULIN LISPRO 100 UNIT/ML 3 ML VIAL SUBCUT ONE (20:15)
[2020-05-10] MEDS: ATORVASTATIN CALCIUM 40 MG TABLET PO SCH (21:31)
[2020-05-10] MEDS: MELATONIN 3 MG TABLET PO SCH (21:32)
--- NOTE | 2020-05-11 08:19 | PDOC PROGRESS REPORT ---
Subjective Date:: 05/11/20 Subjective:: 65 year old male with a history of non-Hodgkin's lymphoma, COPD, type 2 diabetes who presents to the ED reporting that he has been feeling really bad for the past 2 weeks. He has been having increased cough productive of yellowish sputum, shortness of breath, generalized weakness, nausea, watery nonbloody diarrhea. He states that the shortness of breath got progressively worse and yesterday he was able to see his primary care doctor and both he and his were tested for COVID-19 and his tested positive but his test result was pending. He had a rapid COVID-[address] his way to hospital by EMS and it was reported positive. He has associated pleuritic chest pain with coughing and taking deep breaths. He also states that he has decreased appetite and feels lightheaded when trying to get up. On arrival to the ED patient was hypotensive with his blood pressure in the 80s by 50s and he was saturating mid to upper 80s. He was placed on 2 L intranasal oxygen and improved to mid 90s. During my evaluation patient was on room air and was saturating lower 90 to 94%. 05/09/[id number]-cjkx-old male with history of non-Hodgkin's lymphoma, COPD, type 2 diabetes mellitus admitted with shortness of breath and a productive sputum, he was COVID-19 positive. On examination this morning he is on 5 L of oxygen pulse ox is around 91%. Patient is a chronic smoker with history of COPD. He is complaining of depression requesting medications and also requesting something to sleep at night. 05/10/2080-59-qznd-old male admitted with COVID-19 pneumonia pulse ox is 96% on 2 L. Comfortably in the bed communicating. Less anxious less nervous today. Agreed to stay for 3 more days to complete the therapy. 05/11/[id number]-uwud-old male admitted with COVID-19 pneumonia. Pulse ox is 96% room air. No acute events in the last 24 hours. Afebrile. Blood sugars are well controlled. Probably patient is able to go home tomorrow to self quarantine. Reason For Visit: ACUTE HYPOXIC RESPIRATORY FAILURE, SEPSIS, Physical Exam Vital Signs: Temp Pulse Resp BP Pulse Ox 97.8 F 48 L 15 116/74 95 05/11/20 05:47 05/11/20 07:00 05/11/20 05:47 05/11/20 05:47 05/11/20 05:47 Intake & Output 05/10/20 05/11/20 05/12/20 06:59 06:59 06:59 Intake Total 1560 1138 Output Total 1650 2535 Balance -90 -1397 Weight 84.5 kg 84.6 kg General appearance: PRESENT: no acute distress, cooperative Head exam: PRESENT: atraumatic Eye exam: PRESENT: PERRLA Ear exam: PRESENT: normal external ear exam Mouth exam: PRESENT: neck supple Teeth exam: PRESENT: poor dentation Neck exam: ABSENT: carotid bruit, JVD, lymphadenopathy, thyromegaly Respiratory exam: PRESENT: decreased breath sounds Cardiovascular exam: PRESENT: RRR. ABSENT: diastolic murmur, rubs, systolic murmur GI/Abdominal exam: PRESENT: normal bowel sounds, soft. ABSENT: distended, guarding, mass, organolmegaly, rebound, tenderness Rectal exam: PRESENT: deferred Extremities exam: PRESENT: full ROM. ABSENT: calf tenderness, clubbing, pedal edema Neurological exam: PRESENT: alert, awake, oriented to person, oriented to place, oriented to time, oriented to situation, CN II-XII grossly intact. ABSENT: motor sensory deficit Psychiatric exam: PRESENT: appropriate affect, normal mood. ABSENT: homicidal ideation, suicidal ideation Results Laboratory Results: 05/10/20 07:18 05/10/20 05:30 05/07/20 05/08/20 20:05 00:36 Creatine Kinase 103 Troponin I < 0.012 Impressions: Chest X-Ray 05/07/20 19:58 IMPRESSION: Suspected chronic lung disease with hyperinflation and interstitial changes. Scattered benign nodules. No acute findings. Chest/Abdomen CTA 05/07/20 21:13 IMPRESSION: 1. No PE. 2. Nonspecific borderline mediastinal lymph nodes more likely reactive. 3. Significant interstitial lung disease bilaterally.NSIP pattern. This can be a sequela of Covid Pneumonia. This could represent a more chronic process. 4. Incidental advanced emphysematous changes in both upper lobes especially on the right. 5. Fatty liver. Assessment and Plan - Diagnosis (1) Acute respiratory failure with hypoxia Is this a current diagnosis for this admission?: Yes Plan: Patient presents with symptoms consistent with COVID-19 May be overlapping with symptoms of COPD and possible chronic interstitial lung disease Patient was saturating mid 80s on room air on presentation Venous blood gas showed a pH of 7.44 Placed him on intranasal oxygen to maintain saturation Started him on dexamethasone, breathing treatment with DuoNeb's Continued zinc, vitamin C, vitamin D Ceftriaxone and azithromycin IV started Follow-up with blood culture Closely monitor respiratory parameters 05/09/2020-patient has history of COVID-19 positivity admitted with acute hypoxic respiratory failure. Pulse ox is 91% on 5 L this morning. Patient is a chronic smoker has history of COPD and Hodgkin's lymphoma. He is on dexamethas one 6 mg IV daily, zinc, vitamin C, vitamin D. Is also receiving DuoNeb nebulizations. Presently on IV Rocephin, Zithromax. Blood cultures are pending at this time. 05/10/2040-59-dkjw-old male admitted with acute hypoxic respiratory failure with hypoxia secondary to COVID-19 pneumonia. Oxygen requirements are improving. Pulse ox is 96% 2 L. Comfortably in the bed communicating well. CT of the chest is negative for PE. To continue IV Rocephin, Zithromax, dexamethasone, zinc. 05/11/[id number]-ntim-old male admitted with acute hypoxic respiratory failure secondary to COVID-19 pneumonia. Pulse ox is 96% on room air. CT is negative for PE. To continue IV antibiotic therapy, dexamethasone, zinc at this time. Patient may able to go home tomorrow. Acute hypoxic restaurant failure is reso lving. (2) Sepsis Is this a current diagnosis for this admission?: Yes Plan: Hypotensive and tachycardic on presentation, has leukocytosis and lactic acidosis Likely focus of infection could be COVID-19 infection with superimposed bacterial pneumonia Patient reports that he has low blood pressure at baseline and leukocytosis coul d be due to steroid which was started 1 day ago Patient has been hydrated per sepsis protocol at the ED Started him on ceftriaxone and azithromycin Repeat lactic acid level after hydration Closely monitor for signs of volume overload Follow-up with blood culture 05/09/2020-patient came in with hypotension which was resolved. Latest blood pressure is 125/73, afebrile. Blood cultures are pending. WBC is 15,000 may be secondary to IV steroid use. Plan is to continue IV ceftriaxone, azithromycin at this time. Repeat lactic acid level is 1.7. 05/10/2020-patient admitted with sepsis and hypotension. Hypotension is resolved not on IV fluids at this time. Blood pressure is 127/81. 05/11/20201540-35-ejbe-old male admitted with sepsis resolving. Blood cultures are negative afebrile, blood pressures are stable. (3) Pneumonia due to COVID-19 virus Is this a current diagnosis for this admission?: Yes Plan: Patient presents with worsening cough, shortness of breath, nausea and diarrhea Rapid COVID-19 test was positive Was hypoxic on presentation, COPD and possible interstitial lung disease may be contributing Started him on ceftriaxone and azithromycin Continue dexamethasone, zinc, vitamin D, vitamin C Ordered ferritin, LDH, D-dimer, CK and C-reactive protein levels Continue intranasal oxygen 05/09/2020-patient has COVID-19 pneumonia admitted with acute hypoxic respiratory failure. On oxygen supplementations. To continue ceftriaxone, Zithromax, dexamethasone, zinc, vitamin D, vitamin C. Ferritin is 794. C- reactive protein is 58. D-dimer is normal 0.32. CK is normal 103. 05/10/2020-CT scan suggestive of bilateral pneumonia most likely secondary to COVID-19 pneumonia. Receiving IV Rocephin, Zithromax, dexamethasone. 05/11/2020-patient was positive for COVID-19 pneumonia. Pulse ox is 96% room ai r. To continue dexamethasone, multivitamins at this time. May be able to go home tomorrow and he will be advised to self quarantine for at least 10 days. (4) Hypotension Qualifiers: Hypotension type: unspecified hypotension type Qualified Code(s): I95.9 - Hypotension, unspecified Is this a current diagnosis for this admission?: Yes Plan: Patient was hypotensive on presentation Blood pressure has responded well to initial IV fluids Multifactorial likely hypovolemic from poor oral intake and diarrhea versus sepsis Continue IV hydration and close monitoring of vital signs 05/09/2020-blood pressure this morning is 125/73. Hypotension resolved. Not on IV fluids at this time. 05/10/2020-blood pressure today is 127/81. Stable. 05/11/2020-blood pressure today is 127/81. Stable. (5) Leukocytosis Is this a current diagnosis for this admission?: Yes Plan: Likely cause includes steroids, hemoconcentration and underlying infectious process Continue treating infection as stated above 05/09/20-WBC count is 15,300. It may be secondary to steroid therapy. 05/10/20-wbc 12,200.. WBC count is improving. Afebrile. (6) Non Hodgkin's lymphoma Is this a current diagnosis for this admission?: Yes (7) COPD (chronic obstructive pulmonary disease) Is this a current diagnosis for this admission?: Yes Plan: Currently not in acute exacerbation Placed him on breathing treatment with DuoNeb's Continue intranasal oxygen and steroid as mentioned above (8) Type 2 diabetes mellitus Is this a current diagnosis for this admission?: No Plan: We will place him on sliding scale with Accu-Chek and hypoglycemia protocol. 05/09/2020-latest blood sugar is 314. To hold metformin at this time. To increase Lantus to 20 units twice a day and to continue/sliding scale. Diet exercise weight loss lifestyle modifications discussed with the patient. Hemoglobin A1c is requested. 05/10/2020-hemoglobin A1c is 8.1. To continue Lantus 20 units twice daily, insulin sliding scale. Latest blood sugar is 221. Again diet exercise weight loss lifestyle modifications discussed with the patient. 05/11/2020-latest blood sugar is 177. To continue/sliding scale before meals and at bedtime. - Time Anticipated Discharge Disposition: Home, Self Care Anticipated Discharge Timeframe: within 24 hours
[2020-05-11] MEDS: INSULIN LISPRO 100 UNIT/ML 3 ML VIAL SUBCUT SCH ×4 (08:21→21:12)
[2020-05-11] MEDS: PREGABALIN 75 MG CAPSULE PO SCH (08:21)
[2020-05-11] MEDS: FAMOTIDINE 20 MG TABLET PO SCH ×2 (10:18→21:11)
[2020-05-11] MEDS: CHOLECALCIFEROL (D3) 1,000 UNIT (25 MCG) TABLET PO SCH (10:18)
[2020-05-11] MEDS: ZINC SULFATE 220 MG CAPSULE PO SCH (10:18)
[2020-05-11] MEDS: CITALOPRAM HYDROBROMIDE 20 MG TABLET PO SCH (10:18)
[2020-05-11] MEDS: ASCORBIC ACID 500 MG TABLET PO SCH ×2 (10:18→17:03)
[2020-05-11] MEDS: DEXAMETHASONE SOD PHOS INJ 10 MG/1 ML VIAL IV SCH (10:19)
[2020-05-11] MEDS: INSULIN GLARGINE,HUM.REC.ANLOG 1,000 UNIT/10 ML VIAL SUBCUT SCH ×2 (10:19→21:13)
[2020-05-11] MEDS: ENOXAPARIN SODIUM INJ 40 MG/0.4 ML DISP.SYRIN SUBCUT SCH (10:19)
[2020-05-11] MEDS: CEFTRIAXONE 1 GM/D5W RTU 1 GM/50 ML RTUPB IV SCH (10:19)
[2020-05-11] MEDS: OXYMETAZOLINE HCL 0.05% NASAL SPRAY 15 ML BOTTLE NASL SCH ×2 (10:26→17:06)
[2020-05-11] MEDS: FLUTICASONE/UMECLIDIN/VILANTER 100-62.5-25 MCG/DOSE IH SCH (10:26)
[2020-05-11] MEDS: AZITHROMYCIN 500 MG in DEXTROSE 5%-WATER 250 ML IV SCH (10:26)
[2020-05-11] MEDS: METOPROLOL SUCCINATE 50 MG TAB.SR.24H PO SCH (17:03)
[2020-05-11] MEDS: MELATONIN 3 MG TABLET PO SCH (21:11)
[2020-05-11] MEDS: ATORVASTATIN CALCIUM 40 MG TABLET PO SCH (21:11)
[2020-05-12 06:18] LABS: HEMATOCRIT 37.5 % (37.9-51.0); MEAN CORPUSCULAR HEMOGLOBIN 30.6 pg (27.0-33.4); MEAN CORPUSCULAR HGB CONC 34.8 g/dL (32.0-36.0); MEAN CORPUSCULAR VOLUME 88 fl (80-97); PLATELET COUNT 249 10^3/uL (150-450); RED BLOOD COUNT 4.26 10^6/uL (4.35-5.55); RED CELL DISTRIBUTION WIDTH 13.6 % (11.5-14.0); WHITE BLOOD COUNT 11.7 10^3/uL (4.0-10.5)
[2020-05-12 06:46] LABS: ALBUMIN 3.5 g/dL (3.5-5.0); ALKALINE PHOSPHATASE 134 U/L (38-126); ANION GAP 8 (5-19); ASPARTATE AMINO TRANSFERASE 32 U/L (17-59); BILIRUBIN,DIRECT 0.2 mg/dL (0.0-0.4); BILIRUBIN,TOTAL 0.7 mg/dL (0.2-1.3); BLOOD UREA NITROGEN 19 mg/dL (7-20); CARBON DIOXIDE 30 mmol/L (22-30); CHLORIDE 99 mmol/L (98-107); GLUCOSE 220 mg/dL (75-110); POTASSIUM 4.8 mmol/L (3.6-5.0); TOTAL PROTEIN 6.2 g/dL (6.3-8.2)
[2020-05-12 07:42] LABS: ABSOLUTE LYMPHOCYTES# (MANUAL) 2.5 10^3/uL (0.5-4.7); ABSOLUTE MONOCYTES # (MANUAL) 0.4 10^3/uL (0.1-1.4); BASOPHILS % (MANUAL) 0 % (0-2); EOSINOPHILS % (MANUAL) 0 % (0-6); LYMPHOCYTES % (MANUAL) 21 % (13-45); MONOCYTES % (MANUAL) 3 % (3-13); SEGMENTED NEUTROPHILS % (MAN) 76 % (42-78); TOTAL CELLS COUNTED 100
[2020-05-12 07:44] LABS: PLATELET COMMENT ADEQUATE; RBC MORPHOLOGY COMMENT NORMO-CYTIC/CHROMIC
[2020-05-12] MEDS: ENOXAPARIN SODIUM INJ 40 MG/0.4 ML DISP.SYRIN SUBCUT SCH (09:14)
[2020-05-12] MEDS: INSULIN LISPRO 100 UNIT/ML 3 ML VIAL SUBCUT SCH (09:14)
[2020-05-12] MEDS: CEFTRIAXONE 1 GM/D5W RTU 1 GM/50 ML RTUPB IV SCH (09:14)
[2020-05-12] MEDS: ASCORBIC ACID 500 MG TABLET PO SCH (09:15)
[2020-05-12] MEDS: CITALOPRAM HYDROBROMIDE 20 MG TABLET PO SCH (09:15)
[2020-05-12] MEDS: ZINC SULFATE 220 MG CAPSULE PO SCH (09:15)
[2020-05-12] MEDS: PREGABALIN 75 MG CAPSULE PO SCH (09:16)
[2020-05-12] MEDS: DEXAMETHASONE SOD PHOS INJ 10 MG/1 ML VIAL IV SCH (09:19)
[2020-05-12] MEDS: OXYMETAZOLINE HCL 0.05% NASAL SPRAY 15 ML BOTTLE NASL SCH (09:20)
[2020-05-12] MEDS ORDERED: INSULIN GLARGINE,HUM.REC.ANLOG 1,000 UNIT/10 ML VIAL (PYX) SUBCUT ONE (09:22)
[2020-05-12] MEDS ORDERED: INSULIN GLARGINE,HUM.REC.ANLOG 1,000 UNIT/10 ML VIAL SUBCUT SCH (10:00)
[2020-05-12 11:05] VITALS: BP 125/76
--- NOTE | 2020-05-12 17:20 | PDOC DISCHARGE SUMMARY ---
Impression - Admit/DC Date/PCP Admission Date/Primary Care Provider: 05/08/20 12:34 COLEEN DAUGHERTY MD (1) Acute respiratory failure with hypoxia Is this a current diagnosis for this admission?: Yes Plan: Patient presents with symptoms consistent with COVID-19 May be overlapping with symptoms of COPD and possible chronic interstitial lung disease Patient was saturating mid 80s on room air on presentation Venous blood gas showed a pH of 7.44 Placed him on intranasal oxygen to maintain saturation Started him on dexamethasone, breathing treatment with DuoNeb's Continued zinc, vitamin C, vitamin D Ceftriaxone and azithromycin IV started Follow-up with blood culture Closely monitor respiratory parameters 05/09/2020-patient has history of COVID-19 positivity admitted with acute hypoxic respiratory failure. Pulse ox is 91% on 5 L this morning. Patient is a chronic smoker has history of COPD and Hodgkin's lymphoma. He is on dexamethasone 6 mg IV daily, zinc, vitamin C, vitamin D. Is also receiving DuoNeb nebulizations. Presently on IV Rocephin, Zithromax. Blood cultures are pending at this time. 05/10/2080-86-xmpe-old male admitted with acute hypoxic respiratory failure with hypoxia secondary to COVID-19 pneumonia. Oxygen requirements are improving. Pulse ox is 96% 2 L. Comfortably in the bed communicating well. CT of the chest is negative for PE. To continue IV Rocephin, Zithromax, dexamethasone, zinc. 05/11/[id number]-ebwa-old male admitted with acute hypoxic respiratory failure secondary to COVID-19 pneumonia. Pulse ox is 96% on room air. CT is negative for PE. To continue IV antibiotic therapy, dexamethasone, zinc at this time. Patient may able to go home tomorrow. Acute hypoxic restaurant failure is resolving. 05/12/[id number]-nufg-old male admitted with acute hypoxic respiratory failure secondary to COVID-19 pneumonia. Acute hypoxic respiratory failure is resolved. Pulse ox is 96% room air. Patient agreed to go home today. (2) Sepsis Is this a current diagnosis for this admission?: Yes Plan: Hypotensive and tachycardic on presentation, has leukocytosis and lactic acidosis Likely focus of infection could be COVID-19 infection with superimposed bacterial pneumonia Patient reports that he has low blood pressure at baseline and leukocytosis could be due to steroid which was started 1 day ago Patient has been hydrated per sepsis protocol at the ED Started him on ceftriaxone and azithromycin Repeat lactic acid level after hydration Closely monitor for signs of volume overload Follow-up with blood culture 05/09/2020-patient came in with hypotension which was resolved. Latest blood pressure is 125/73, afebrile. Blood cultures are pending. WBC is 15,000 may be secondary to IV steroid use. Plan is to continue IV ceftriaxone, azithromycin at this time. Repeat lactic acid level is 1.7. 05/10/2020-patient admitted with sepsis and hypotension. Hypotension is resolved not on IV fluids at this time. Blood pressure is 127/81. 05/11/[id number]-jeta-old male admitted with sepsis resolving. Blood cultures are negative afebrile, blood pressures are stable. 05/12/[id number]-ittf-old male admitted with sepsis, blood cultures are negative. CAT scan suggestive of COVID-19 pneumonia and COVID-19 testing is positive. He is doing well pulse ox is 96% room air and plan is to discharge him home today and follow-up with PCP he was advised to put quarantine for 10 days. (3) Pneumonia due to COVID-19 virus Is this a current diagnosis for this admission?: Yes Plan: Patient presents with worsening cough, shortness of breath, nausea and diarrhea Rapid COVID-19 test was positive Was hypoxic on presentation, COPD and possible interstitial lung disease may be contributing Started him on ceftriaxone and azithromycin Continue dexamethasone, zinc, vitamin D, vitamin C Ordered ferritin, LDH, D-dimer, CK and C-reactive protein levels Continue intranasal oxygen 05/09/2020-patient has COVID-19 pneumonia admitted with acute hypoxic respiratory failure. On oxygen supplementations. To continue ceftriaxone, Zithromax, dexamethasone, zinc, vitamin D, vitamin C. Ferritin is 794. C- reactive protein is 58. D-dimer is normal 0.32. CK is normal 103. 05/10/2020-CT scan suggestive of bilateral pneumonia most likely secondary to COVID-19 pneumonia. Receiving IV Rocephin, Zithromax, dexamethasone. 05/11/2020-patient was positive for COVID-19 pneumonia. Pulse ox is 96% room air. To continue dexamethasone, multivitamins at this time. May be able to go home tomorrow and he will be advised to self quarantine for at least 10 days. 05/12/2020-pulse oxes are stable for the last 48 hours. Pulse ox is 96% room air this morning. Patient was given a prescription for zinc, vitamin D, vitamin C, dexamethasone. He was advised to be self quarantine. At least for 10 days. (4) Hypotension Qualifiers: Hypotension type: unspecified hypotension type Qualified Code(s): I95.9 - Hypotension, unspecified Is this a current diagnosis for this admission?: Yes Plan: Patient was hypotensive on presentation Blood pressure has responded well to initial IV fluids Multifactorial likely hypovolemic from poor oral intake and diarrhea versus sepsis Continue IV hydration and close monitoring of vital signs 05/09/2020-blood pressure this morning is 125/73. Hypotension resolved. Not on IV fluids at this time. 05/10/2020-blood pressure today is 127/81. Stable. 05/11/2020-blood pressure today is 127/81. Stable. (5) Leukocytosis Is this a current diagnosis for this admission?: Yes Plan: Likely cause includes steroids, hemoconcentration and underlying infectious process Continue treating infection as stated above 05/09/20-WBC count is 15,300. It may be secondary to steroid therapy. 05/10/20-wbc 12,200.. WBC count is improving. Afebrile. (6) Non Hodgkin's lymphoma Is this a current diagnosis for this admission?: Yes (7) COPD (chronic obstructive pulmonary disease) Is this a current diagnosis for this admission?: Yes Plan: Currently not in acute exacerbation Placed him on breathing treatment with DuoNeb's Continue intranasal oxygen and steroid as mentioned above (8) Type 2 diabetes mellitus Is this a current diagnosis for this admission?: No Plan: We will place him on sliding scale with Accu-Chek and hypoglycemia protocol. 05/09/2020-latest blood sugar is 314. To hold metformin at this time. To increase Lantus to 20 units twice a day and to continue/sliding scale. Diet exercise weight loss lifestyle modifications discussed with the patient. Hemoglobin A1c is requested. 05/10/2020-hemoglobin A1c is 8.1. To continue Lantus 20 units twice daily, insulin sliding scale. Latest blood sugar is 221. Again diet exercise weight loss lifestyle modifications discussed with the patient. 05/11/2020-latest blood sugar is 177. To continue/sliding scale before meals and at bedtime. Discharge Date: 05/12/20 - Discharge Diagnosis (1) Acute respiratory failure with hypoxia Is this a current diagnosis for this admission?: Yes (2) Sepsis Is this a current diagnosis for this admission?: Yes (3) Pneumonia due to COVID-19 virus Is this a current diagnosis for this admission?: Yes (4) Hypotension Is this a current diagnosis for this admission?: Yes (5) Leukocytosis Is this a current diagnosis for this admission?: Yes (6) Non Hodgkin's lymphoma Is this a current diagnosis for this admission?: Yes (7) COPD (chronic obstructive pulmonary disease) Is this a current diagnosis for this admission?: Yes (8) Type 2 diabetes mellitus Is this a current diagnosis for this admission?: No - Additional Information Resuscitation Status: Full Code Discharge Diet: Cardiac Discharge Activity: Activity As Tolerated Referrals: COLEEN DAUGHERTY MD [Primary Care Provider] - Follow up as needed (The patient will make her own appointment.) Prescriptions: Citalopram Hydrobromide [Celexa 20 mg Tablet] 40 mg PO DAILY 30 Days #30 tablet Dexamethasone [Decadron 4 mg Tablet] 4 mg PO DAILY #5 tablet Ascorbic Acid [Vitamin C 500 mg Tablet] 500 mg PO BID 30 Days #60 tablet Cholecalciferol (Vitamin D3) [Vitamin D3 1000 Unit Tablet] 2,000 unit PO DAILY 30 Days #30 tablet Zinc Sulfate [Zinc-220 Capsule] 220 mg PO DAILY 30 Days #30 capsule Home Medications: Albuterol Sulfate [Proair HFA Inhalation Aerosol 8.5 gm MDI] 2 puff IH Q4HP PRN 05/08/20 Budesonide/Formoterol Fumarate [Symbicort HFA 160-4.5 mcg Inhaler 6 gm] 2 puff IH BID 05/08/20 Metformin HCl [Glucophage 500 mg Tablet] 500 mg PO BID 05/08/20 Metoprolol Succinate [Toprol Xl 50 mg Tab.sr] 50 mg PO QPM 05/08/20 Niacin (Inositol Niacinate) [Niacin 500 mg Capsule] 500 mg PO DAILY 05/08/20 Omeprazole 20 mg PO QAM 05/08/20 Pregabalin [Lyrica 75 mg Capsule] 75 mg PO QAM 05/08/20 Rosuvastatin Calcium [Crestor] 5 mg PO QPM 12/17/20 Ascorbic Acid [Vitamin C 500 mg Tablet] 500 mg PO BID 30 Days #60 tablet 05/12/20 Cholecalciferol (Vitamin D3) [Vitamin D3 1000 Unit Tablet] 2,000 unit PO DAILY 30 Days #30 tablet 05/12/20 Citalopram Hydrobromide [Celexa 20 mg Tablet] 40 mg PO DAILY 30 Days #30 tablet 05/12/20 Dexamethasone [Decadron 4 mg Tablet] 4 mg PO DAILY #5 tablet 05/12/20 Zinc Sulfate [Zinc-220 Capsule] 220 mg PO DAILY 30 Days #30 capsule 05/12/20 History of Present Illiness History of Present Illness: HERBIE UMANA is a 65 year old male 65 year old male with a history of non-Hodgkin's lymphoma, COPD, type 2 diabetes who presents to the ED reporting that he has been feeling really bad for the past 2 weeks. He has been having increased cough productive of yellowish sputu m, shortness of breath, generalized weakness, nausea, watery nonbloody diarrhea. He states that the shortness of breath got progressively worse and yesterday he was able to see his primary care doctor and both he and his were tested for COVID-19 and his tested positive but his test result was pending. He had a rapid COVID-[address] to hospital by EMS and it was reported p ositive. He has associated pleuritic chest pain with coughing and taking deep breaths. He also states that he has decreased appetite and feels lightheaded when trying to get up. On arrival to the ED patient was hypotensive with his blood pressure in the 80s by 50s and he was saturating mid to upper 80s. He was placed on 2 L intranasal oxygen and improved to mid 90s. During my evaluation patient was on room air and was saturating lower 90 to 94%. Hospital Course Hospital Course: 65 year old male with a history of non-Hodgkin's lymphoma, COPD, type 2 diabetes who presents to the ED reporting that he has been feeling really bad for the past 2 weeks. He has been having increased cough productive of yellowish sputum, shortness of breath, generalized weakness, nausea, watery nonbloody diarrhea. He states that the shortness of breath got progressively worse and yesterday he was able to see his primary care doctor and both he and his were tested for COVID-19 and his tested positive but his test result was pending. He had a rapid COVID-[address] to hospital by EMS and it was reported positive. He has associated pleuritic chest pain with coughing and taking deep breaths. He also states that he has decreased appetite and feels lightheaded when trying to get up. On arrival to the ED patient was hypotensive with his blood pressure in the 80s by 50s and he was saturating mid to upper 80s. He was placed on 2 L intranasal oxygen and improved to mid 90s. During my evaluation patient was on room air and was saturating lower 90 to 94%. 05/09/20201089-65-gomv-old male with history of non-Hodgkin's lymphoma, COPD, type 2 diabetes mellitus admitted with shortness of breath and a productive sputum, he was COVID-19 positive. On examination this morning he is on 5 L of oxygen pulse ox is around 91%. Patient is a chronic smoker with history of COPD. He is complaining of depression requesting medications and also requesting something to sleep at night. 05/10/2049-95-uuua-old male admitted with COVID-19 pneumonia pulse ox is 96% on 2 L. Comfortably in the bed communicating. Less anxious less nervous today. Ag bhupinder to stay for 3 more days to complete the therapy. 05/11/[id number]-jlkn-old male admitted with COVID-19 pneumonia. Pulse ox is 96% room air. No acute events in the last 24 hours. Afebrile. Blood sugars are well controlled. Probably patient is able to go home tomorrow to self quarantine. 05/12/[id number]-vqvz-old male admitted with COVID-19 pneumonia doing well. No acute events in the last 24 hours. Afebrile. Pulse ox is 96% room air. Patient is cleared to go home today advised to do the self quarantine for at least 10 days. Patient was given a prescription for rinsing, vitamin D, vitamin C, dexamethasone. Physical Exam Vital Signs: Temp Pulse Resp BP Pulse Ox 97.5 F 60 16 125/76 92 05/12/20 11:04 05/12/20 11:04 05/12/20 11:04 05/12/20 11:04 05/12/20 11:04 Intake & Output 05/11/20 05/12/2020 06:59 06:59 06:59 Intake Total 8213 6508 480 Output Total 3889 4252 Balance -1397 -553 480 Weight 84.6 kg 83.8 kg General appearance: PRESENT: no acute distress, cooperative Head exam: PRESENT: atraumatic Eye exam: PRESENT: PERRLA Mouth exam: PRESENT: moist, tongue midline Teeth exam: PRESENT: poor dentation Neck exam: ABSENT: carotid bruit, JVD, lymphadenopathy, thyromegaly Respiratory exam: PRESENT: decreased breath sounds Cardiovascular exam: PRESENT: RRR. ABSENT: diastolic murmur, rubs, systolic murmur GI/Abdominal exam: PRESENT: normal bowel sounds, soft. ABSENT: distended, guarding, mass, organolmegaly, rebound, tenderness Rectal exam: PRESENT: deferred Extremities exam: PRESENT: full ROM. ABSENT: calf tenderness, clubbing, pedal edema Neurological exam: PRESENT: alert, awake, oriented to person, oriented to place, oriented to time, oriented to situation, CN II-XII grossly intact. ABSENT: motor sensory deficit Psychiatric exam: PRESENT: appropriate affect, normal mood. ABSENT: homicidal ideation, suicidal ideation Skin exam: PRESENT: dry, intact, warm. ABSENT: cyanosis, rash Results Laboratory Results: WBC 11.7 10^3/uL (4.0-10.5) H 05/12/20 05:35 RBC 4.26 10^6/uL (4.35-5.55) L 05/12/20 05:35 Hgb 13.0 g/dL (13.5-17.0) L 05/12/20 05:35 Hct 37.5 % (37.9-51.0) L 05/12/20 05:35 MCV 88 fl (80-97) 05/12/20 05:35 MCH 30.6 pg (27.0-33.4) 05/12/20 05:35 MCHC 34.8 g/dL (32.0-36.0) 05/12/20 05:35 RDW 13.6 % (11.5-14.0) 05/12/20 05:35 Plt Count 249 10^3/uL (150-450) 05/12/20 05:35 Lymph % (Auto) Not Reportable 05/12/20 05:35 [place] % (Auto) Not Reportable 05/12/20 05:35 Eos % (Auto) Not Reportable 05/12/20 05:35 Baso % (Auto) Not Reportable 05/12/20 05:35 Absolute Neuts (auto) Not Reportable 05/12/20 05:35 Absolute Lymphs (auto) Not Reportable 05/12/20 05:35 Absolute Monos (auto) Not Reportable 05/12/20 05:35 Absolute Eos (auto) Not Reportable 05/12/20 05:35 Absolute Basos (auto) Not Reportable 05/12/20 05:35 Total Counted 100 05/12/20 05:35 Seg Neutrophils % Not Reportable 05/12/20 05:35 Seg Neuts % (Manual) 76 % (42-78) 05/12/20 05:35 Lymphocytes % (Manual) 21 % (13-45) 05/12/20 05:35 Monocytes % (Manual) 3 % (3-13) 05/12/20 05:35 Eosinophils % (Manual) 0 % (0-6) 05/12/20 05:35 Basophils % (Manual) 0 % (0-2) 05/12/20 05:35 Abs Neuts (Manual) 8.9 10^3/uL (1.7-8.2) H 05/12/20 05:35 Abs Lymphs (Manual) 2.5 10^3/uL (0.5-4.7) 05/12/20 05:35 Abs Monocytes (Manual) 0.4 10^3/uL (0.1-1.4) 05/12/20 05:35 Absolute Eos (Manual) 0.0 10^3/uL (0.0-0.6) 05/12/20 05:35 Abs Basophils (Manual) 0.0 10^3/uL (0.0-0.2) 05/12/20 05:35 Platelet Estimate Cancelled 05/10/20 05:30 Platelet Comment ADEQUATE 05/12/20 05:35 RBC Morph Comment NORMO-CYTIC/CHROMIC 05/12/20 05:35 PT 13.9 SEC (11.4-15.4) 05/07/20 20:05 INR 1.05 05/07/20 20:05 D-Dimer 0.32 ug/mL (0.00-0.50) 05/07/20 20:05 VBG pH 7.44 (7.30-7.42) H 05/07/20 20:05 VBG pCO2 33.6 mmHg (35-63) L 05/07/20 20:05 VBG HCO3 22.2 mmol/L (20-32) 05/07/20 20:05 VBG Base Excess -1.2 mmol/L 05/07/20 20:05 Sodium 137.2 mmol/L (137-145) 05/12/20 05:35 Potassium 4.8 mmol/L (3.6-5.0) 05/12/20 05:35 Chloride 99 mmol/L (98-107) 05/12/20 05:35 Carbon Dioxide 30 mmol/L (22-30) 05/12/20 05:35 Anion Gap 8 (5-19) 05/12/20 05:35 BUN 19 mg/dL (7-20) 05/12/20 05:35 Creatinine 0.89 mg/dL (0.52-1.25) 05/12/20 05:35 Est GFR ( Amer) > 60 (>60) 05/12/20 05:35 Est GFR (MDRD) Non-Af > 60 (>60) 05/12/20 05:35 Glucose 220 mg/dL (75-110) H 05/12/20 05:35 POC Glucose 215 mg/dL (70-110) H 05/12/20 07:28 Hemoglobin A1c % 8.1 % (4.7-6.0) H 05/10/20 05:30 Lactic Acid 1.7 mmol/L (0.7-2.1) 05/07/20 23:11 Calcium 9.0 mg/dL (8.4-10.2) 05/12/20 05:35 Magnesium 2.1 mg/dL (1.6-2.3) 05/12/20 05:35 Ferritin 794.00 ng/mL (17.9-464.0) H 05/08/20 00:36 Total Bilirubin 0.7 mg/dL (0.2-1.3) 05/12/20 05:35 Direct Bilirubin 0.2 mg/dL (0.0-0.4) 05/12/20 05:35 Neonat Total Bilirubin Not Reportable 05/12/20 05:35 Neonat Direct Bilirubin Not Reportable 05/12/20 05:35 Neonat Indirect Bili Not Reportable 05/12/20 05:35 AST 32 U/L (17-59) 05/12/20 05:35 ALT 68 U/L (<50) H 05/12/20 05:35 Alkaline Phosphatase 134 U/L (38-126) H 05/12/20 05:35 Lactate Dehydrogenase 183 U/L (120-246) 05/08/20 00:36 Creatine Kinase 103 U/L (55-170) 05/08/20 00:36 Troponin I < 0.012 ng/mL 05/07/20 20:05 C-Reactive Protein 58.3 mg/L (<10.0) H 05/08/20 00:36 Total Protein 6.2 g/dL (6.3-8.2) L 05/12/20 05:35 Albumin 3.5 g/dL (3.5-5.0) 05/12/20 05:35 Slides for Path Review Cancelled 05/10/20 05:30 05/07/20 20:05 Troponin I < 0.012 Impressions: Chest X-Ray 05/07/20 19:58 IMPRESSION: Suspected chronic lung disease with hyperinflation and interstitial changes. Scattered benign nodules. No acute findings. Chest/Abdomen CTA 05/07/20 21:13 IMPRESSION: 1. No PE. 2. Nonspecific borderline mediastinal lymph nodes more likely reactive. 3. Significant interstitial lung disease bilaterally.NSIP pattern. This can be a sequela of Covid Pneumonia. This could represent a more chronic process. 4. Incidental advanced emphysematous changes in both upper lobes especially on the right. 5. Fatty liver. Plan Time Spent: Greater than 30 Minutes Stroke Is this a Stroke Patient?: No Acute Heart Failure Is this a Heart Failure Patient?: No
== END 2020-05-12 12:09 | disposition home or self-care (01) | DRG 871 ==
LOC: ER 19:43 → EH 05-08 00:49 → INTOOBSV 05-08 00:49 → 3N 05-08 02:45 → OBSVTOIN 05-08 12:34
PROVIDERS: ADMIT Student in an Organized Health Care Education/Training Program; ATTEND Internal Medicine
DX: A41.89 Other specified sepsis (principal); U07.1 COVID-19; J12.89 Other viral pneumonia; J96.01 Acute respiratory failure with hypoxia; C85.90 Non-Hodgkin lymphoma, unspecified, unspecified site; J44.9 Chronic obstructive pulmonary disease, unspecified; E11.9 Type 2 diabetes mellitus without complications; E78.00 Pure hypercholesterolemia, unspecified; K21.9 Gastro-esophageal reflux disease without esophagitis; E86.0 Dehydration; I95.9 Hypotension, unspecified; Z87.891 Personal history of nicotine dependence
CPT/HCPCS: 36415; 71045; 71275; 80048; 80053; 82550; 82728; 82803; 82962; 83036; 83605; 83615; 83735; 84484; 85025; 85027; 85379; 85610; 86140; 87040; 93005; 93010; 96360; 96361; 99285; G0378; J0456; J0696; J1100; J1650; J1815; J3490; J7030; J7060